=== PATIENT | female | born 2000 | race Caucasian/White ===

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

== ENCOUNTER 2022-01-23 16:34 | Emergency (ER) | payer MEDICAID, SELFPAY | END 2022-01-23 17:48 | disposition left against medical advice (07) | PROVIDERS: Emergency Provider Emergency Medicine | DX: R42 Dizziness and giddiness (principal) ==

== ENCOUNTER 2022-02-22 00:43 | Emergency (ER) | payer MEDICAID, SELFPAY ==
--- NOTE | ~2022-02-22 | CT_ITS ---
EXAMINATION: CT ABDOMEN AND PELVIS WITHOUT CONTRAST CLINICAL INFORMATION: Left flank pain. Question stone. COMPARISON: Ultrasound from 07/15/2021 TECHNIQUE: Multidetector volumetric imaging was performed from the superior aspect of the liver through the pubic symphysis. Sagittal and coronal reformatted images were obtained on the technologist's workstation. This CT examination was performed using dose optimization techniques as appropriate, variously including the following: *Automated exposure control *Adjustment of mA and/or kV according to patient size (this includes techniques or standardized protocols for targeted exams where dose is matched to indication/reason for exam; i.e. extremities or head) *Use of iterative reconstruction technique DLP: 620 mGy-cm FINDINGS: LUNG BASES: The visualized lung bases are unremarkable. LIVER, GALLBLADDER, AND BILIARY TREE: The liver is normal in size, shape, and attenuation. No focal hepatic lesion or biliary ductal dilatation is present. The gallbladder is unremarkable with no evidence of radiopaque gallstones, gallbladder wall thickening, or obvious pericholecystic inflammatory changes. PANCREAS: Unremarkable. SPLEEN: Unremarkable. ADRENAL GLANDS: Unremarkable. KIDNEYS AND URETERS: The kidneys are normal in size, shape, and attenuation. Mild left hydronephrosis. Associated perinephric fat stranding. 0.4 cm calculus at the left ureteropelvic junction, 14 cm from the posterior axillary line. The ureter is decompressed distal to this level. BLADDER: Unremarkable. GASTROINTESTINAL TRACT: The small and large bowel are unremarkable. The appendix is unremarkable. ABDOMINAL WALL: No significant hernia is appreciated. LYMPH NODES: Normal. VASCULAR: Unremarkable. PELVIC VISCERA: The uterus and adnexa are unremarkable. OSSEOUS STRUCTURES: Unremarkable. CT/CT abdomen pelvis wo IV con IMPRESSION: Mild left hydronephrosis with a 0.4 cm calculus at the ureteropelvic junction. Fleischner guidelines were followed.
[2022-02-22 00:45] VITALS: BP 132/70; BP 132/92; PULSE 100; PULSE 83; RESP 21; TEMP 36.8; O2SAT 100; O2SAT 99; BMI 31.1
--- NOTE | 2022-02-22 01:25 | ED_ITS ---
HPI - Abdominal Pain General Chief Complaint: Abdominal Pain Stated Complaint: woke up with back pain Time Seen by Provider: 02/22/22 00:53 History of Present Illness HPI narrative: patient with history of nonobstructive kidney stone comes here for acute onset of left flank pain started about an hour prior to arrival associated with nausea. Patient never had similar severe pain in the past Related Data Home Medications Medication Instructions Recorded Confirmed aspirin 81 mg tablet,delayed 162 mg PO DAILY 07/24/21 release chlorhexidine gluconate 0.12 % 15 ml PO BID 07/24/21 mouthwash pyridoxine (vitamin B6) 100 mg 100 mg PO DAILY 07/24/21 tablet Previous Rx's Medication Instructions Recorded ibuprofen 400 mg tablet 400 mg PO Q6H PRN pain #20 tabs 10/07/20 oxycodone-acetaminophen 5 mg-325 1 tab PO Q6H PRN pain #20 tabs 02/22/22 mg tablet (Percocet) tamsulosin 0.4 mg capsule (Flomax) 0.4 mg PO BEDTIME #7 caps 02/22/22 Allergies Allergy/AdvReac Type Severity Reaction Status Date / Time No Known Allergies Allergy Verified 02/22/22 00:49 [No Known Allergies*] Review of Systems Review of Systems Yes all other systems are reviewed and are negative PMFSH Past Medical History Medical History Patient denies significant medical history Renal calculi Surgical History No pertinent past surgical history Social History Social History Alcohol intake: never Advance Directives: No Advance Directives Information Provided: No Physical Exam ED Vital Signs: Vital Signs - 24 hr 02/22/22 00:45 Temperature 98.2 F Pulse Rate 100 Respiratory Rate 21 H Blood Pressure 132/70 Pulse Oximetry 100 Oxygen Delivery Method Room Air BMI result Body Mass Index 31.1 Appearance: Alert. Oriented X3. No acute distress. Eyes: no pallor or icterus ENT: Pharynx normal. Oral Mucosa moist Neck: Normal inspection. Neck supple. CVS: Normal heart rate and rhythm. Pulses normal. Respiratory: No respiratory distress. Equal air entry bilateral, Abdomen: Soft and nontender. Bowel sounds are present, no mass palpable, left CVA tenderness Skin: Skin warm and dry. Normal skin color. Normal skin turgor. Extremities: No lower extremity edema. No calf tenderness Neuro: Oriented X 3. MDM - Abdominal Pain MDM Narrative Medical decision making narrative: patient with 0.4 cm ureteropelvic obstructive stone with mild hydronephrosis feeling much better after IV fluids and pain medication advised to follow-up with urology Differential Diagnosis Differential diagnosis: Likely calculus of kidney Medical Records Attestation: I reviewed the patient's medical records. Lab Data Attestation: I reviewed the patient's lab results. Result diagrams: 02/22/22 01:48 02/22/22 01:48 Labs: Lab Results 02/22/22 02/22/22 Range/Units 01:48 01:48 WBC 11.4 H (4.8-10.8) X10*3/uL RBC 5.05 (4.20-5.50) X10*6/uL Hgb 13.3 (12.0-16.0) g/dl Hct 39.2 (37.0-47.0) % MCV 77.6 L (80.0-98.0) fL MCH 26.3 L (27.0-33.0) pg MCHC 33.9 (31.0-35.0) g/dl RDW 14.5 (11.0-16.0) % Plt Count 369 D (160-400) X10*3/uL MPV 8.8 L (9.4-12.3) fL Immature Gran % (Auto) 0.4 (0.0-0.4) % Neut % (Auto) 73.8 H (45-73) % Lymph % (Auto) 19.0 L (20-40) % [place] % (Auto) 5.6 (2-11) % Eos % (Auto) 0.8 (0-4) % Baso % (Auto) 0.4 (0-2) % Lymph # (Auto) 2.2 (1.2-4.9) X10*3/uL [place] # (Auto) 0.6 (0.1-1.2) X10*3/uL Eos # (Auto) 0.1 (0.0-0.4) X10*3/uL Baso # (Auto) 0.0 (0.0-0.2) X10*3/uL Abs Immat Gran (auto) 0.04 H (0.00-0.03) X10*3/uL Absolute Neuts (auto) 8.4 H (2.0-8.3) x10*3/uL Absolute Nucleated RBC 0.000 (0.0-0.012) X10*3/uL Nucleated RBC % (auto) 0.0 (0.0-0.2) /100WBC Sodium 140 (135-145) mmol/L Potassium 3.7 (3.3-5.1) mmol/L Chloride 103 (96-108) mmol/L Carbon Dioxide 24 (22-29) mmol/L Anion Gap 17 (12-20) BUN 15 D (9-16) mg/dL Creatinine 0.86 (0.5-1.4) mg/dL Estim Creat Clear Calc 101.2 Estimated GFR > 60 Random Glucose 122 H (60-115) mg/dL Calcium 9.9 D (8.4-10.2) mg/dL Discharge Plan Discharge Clinical Impression: Renal calculi Patient Disposition: Home, Self-Care Instructions: Kidney Stones (ED) Additional Instructions: drink plenty of fluids pain medication as advised do not do breast feed while taking pain medication follow-up with urology Prescriptions: New oxycodone-acetaminophen [Percocet] 5-325 mg tablet 1 tab PO Q6H PRN (Reason: pain) Qty: 20 0RF Rx Instructions: Partial Fill upon patient request. tamsulosin [Flomax] 0.4 mg capsule 0.4 mg PO BEDTIME Qty: 7 0RF No Action ibuprofen 400 mg tablet 400 mg PO Q6H PRN (Reason: pain) Qty: 20 0RF aspirin 81 mg tablet,delayed release (DR/EC) 162 mg PO DAILY chlorhexidine gluconate 0.12 % mouthwash 15 ml PO BID pyridoxine (vitamin B6) 100 mg tablet 100 mg PO DAILY Referrals: Jaciel Gardner MD [Physician] - 2 days Interventions: ED Discharge Assessment Last Done: 02/22/22 03:21 Discharge Date/Time: 02/22/22 03:41
[2022-02-22] MEDS: Morphine Sulfate 4 MG/ML CARTRIDGE IVPUSH (01:45)
[2022-02-22] MEDS: 0.9 % Sodium Chloride 1,000 ML 999 ML IV (01:50)
[2022-02-22] MEDS: ondansetron HCL 4 MG/2 ML VIAL IVPUSH (01:50)
[2022-02-22 01:52] LABS: MANUAL DIFF FLAG NO
[2022-02-22 01:54] LABS: Basophils Percent Auto 0.4 % (0-2); Eosinophils Absolute Auto 0.1 X10*3/uL (0.0-0.4); Eosinophils Percent Auto 0.8 % (0-4); Hematocrit 39.2 % (37.0-47.0); Hemoglobin 13.3 g/dl (12.0-16.0); Imm Gran Abs Auto 0.04 X10*3/uL (0.00-0.03); Imm Gran Pct Auto 0.4 % (0.0-0.4); Lymphocytes Absolute Auto 2.2 X10*3/uL (1.2-4.9); Mean Corpuscular HGB Conc 33.9 g/dl (31.0-35.0); Mean Corpuscular Hemoglobin 26.3 pg (27.0-33.0); Mean Corpuscular Volume 77.6 fL (80.0-98.0); Mean Platelet Volume 8.8 fL (9.4-12.3); Monocytes Absolute Auto 0.6 X10*3/uL (0.1-1.2); Monocytes Percent Auto 5.6 % (2-11); Neutrophils Absolute Auto 8.4 x10*3/uL (2.0-8.3); Neutrophils Percent Auto 73.8 % (45-73); Platelet Count 369 X10*3/uL (160-400); Red Blood Count 5.05 X10*6/uL (4.20-5.50); Red Cell Distribution Width 14.5 % (11.0-16.0); White Blood Count 11.4 X10*3/uL (4.8-10.8)
[2022-02-22] MEDS: Ketorolac Tromethamine 30 MG/ML VIAL IVPUSH (02:09)
[2022-02-22 02:33] LABS: Anion Gap 17 (12-20); Blood Urea Nitrogen 15 mg/dL (9-16); Calcium 9.9 mg/dL (8.4-10.2); Carbon Dioxide 24 mmol/L (22-29); Chloride 103 mmol/L (96-108); Creatinine Clr Calc Pharmacy 101.2; Estimated Glomerular Filt Rate > 60; Glucose Random 122 mg/dL (60-115); Potassium 3.7 mmol/L (3.3-5.1); Sodium 140 mmol/L (135-145)
[2022-02-22] MEDS: oxyCODONE HCl Immed Release 5 MG TABLET 10 MG PO (03:35)
[2022-02-22] MEDS: Tamsulosin HCL 0.4 MG CAPSULE PO (03:35)
== END 2022-02-22 03:41 | disposition home or self-care (01) ==
PROVIDERS: Emergency Provider Internal Medicine
DX: N20.0 Calculus of kidney (principal); Z79.899 Other long term (current) drug therapy
CPT/HCPCS: 36415; 74176; 80048; 85025; 96374; 96375; 99283; 99284; J1885; J2270; J2405

== ENCOUNTER 2022-03-31 07:08 | Emergency (ER) | payer MEDICAID, SELFPAY ==
--- NOTE | 2022-03-31 07:20 | PC.NURSE ---
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
== END 2022-03-31 07:24 | disposition left against medical advice (07) ==
PROVIDERS: Emergency Provider Emergency Medicine
DX: R10.9 Unspecified abdominal pain (principal)

== ENCOUNTER 2022-04-03 05:12 | Emergency (ER) | payer MEDICAID, SELFPAY ==
[2022-04-03 05:17] VITALS: BP 147/84; PULSE 86; RESP 16; TEMP 36.7; O2SAT 98; BMI 31.1
[2022-04-03 05:43] LABS: Basophils Percent Auto 0.3 % (0-2); Eosinophils Absolute Auto 0.2 X10*3/uL (0.0-0.4); Eosinophils Percent Auto 1.4 % (0-4); Hematocrit 38.9 % (37.0-47.0); Imm Gran Abs Auto 0.05 X10*3/uL (0.00-0.03); Imm Gran Pct Auto 0.4 % (0.0-0.4); Lymphocytes Absolute Auto 1.9 X10*3/uL (1.2-4.9); Lymphocytes Percent Auto 15.2 % (20-40); MANUAL DIFF FLAG NO; Mean Corpuscular HGB Conc 33.4 g/dl (31.0-35.0); Mean Corpuscular Hemoglobin 25.6 pg (27.0-33.0); Mean Corpuscular Volume 76.6 fL (80.0-98.0); Mean Platelet Volume 8.9 fL (9.4-12.3); Monocytes Percent Auto 8.3 % (2-11); Neutrophils Absolute Auto 9.4 x10*3/uL (2.0-8.3); Neutrophils Percent Auto 74.4 % (45-73); Platelet Count 297 X10*3/uL (160-400); Red Blood Count 5.08 X10*6/uL (4.20-5.50); Red Cell Distribution Width 13.2 % (11.0-16.0); White Blood Count 12.6 X10*3/uL (4.8-10.8)
[2022-04-03 05:46] LABS: Appearance Urine Clear; Color Urine Yellow; Glucose Urine UA Negative (Negative); Leukocyte Esterase Urine Small (1+) (Negative); Nitrite Urine Negative (Negative); PH 5.5 (5.0-9.0); UMIC TRIGGER UACC YES; Urine Blood Moderate (2+) (Negative); Urine Ketones Trace mg/dL (Negative); Urine Protein Trace mg/dL (Neg-Trace)
[2022-04-03 05:50] LABS: Urine Pregnancy NEGATIVE (NEGATIVE)
[2022-04-03 05:51] LABS: UPreg QC Valid YES
[2022-04-03 06:00] LABS: Alanine Aminotransferase 15 U/L (0-31); Albumin Level 4.4 g/dL (3.5-5.0); Alkaline Phosphatase 80 U/L (39-117); Anion Gap 12 (12-20); Aspartate Amino Transferase 16 U/L (5-31); Bilirubin Total 0.4 mg/dL (0.0-1.0); Blood Urea Nitrogen 12 mg/dL (9-16); Calcium 9.3 mg/dL (8.4-10.2); Carbon Dioxide 21 mmol/L (22-29); Chloride 109 mmol/L (96-108); Creatinine Clr Calc Pharmacy 114.4; Estimated Glomerular Filt Rate > 60; Glucose Random 107 mg/dL (60-115); Potassium 3.7 mmol/L (3.3-5.1); Sodium 138 mmol/L (135-145)
[2022-04-03 06:17] LABS: Bacteria Urine 1+ (None Seen); Hyaline Casts Urine 0-2 /LPF (0-2); RBC Urine >20 /HPF (0-2); UACC Culture Trigger YES
--- NOTE | 2022-04-03 11:23 | ED_ITS ---
HPI - Abdominal Pain General Chief Complaint: Abdominal Pain Stated Complaint: Kidney Stone? Time Seen by Provider: 04/03/22 09:39 Source: patient History of Present Illness HPI narrative: 21-year-old female with past medical history kidney stones, scheduled to have surgical procedure in 2 weeks, presents to the ED complaining of pain. Patient states the pain is Related Data Home Medications Medication Instructions Recorded Confirmed aspirin 81 mg tablet,delayed 162 mg PO DAILY 07/24/21 release chlorhexidine gluconate 0.12 % 15 ml PO BID 07/24/21 mouthwash pyridoxine (vitamin B6) 100 mg 100 mg PO DAILY 07/24/21 tablet Previous Rx's Medication Instructions Recorded ibuprofen 400 mg tablet 400 mg PO Q6H PRN pain #20 tabs 10/07/20 oxycodone-acetaminophen 5 mg-325 1 tab PO Q6H PRN pain #20 tabs 02/22/22 mg tablet (Percocet) tamsulosin 0.4 mg capsule (Flomax) 0.4 mg PO BEDTIME #7 caps 02/22/22 cephalexin 500 mg capsule 500 mg PO BID #7 caps 04/03/22 oxycodone-acetaminophen 5 mg-325 1 tab PO Q4H PRN pain (scale score 04/03/22 mg tablet (Percocet) 4-6) #14 tabs Allergies Allergy/AdvReac Type Severity Reaction Status Date / Time diphenhydramine AdvReac Intermediate Agitated Verified 03/31/22 07:11 [From Benadryl] PMFSH Past Medical History Medical History Patient denies significant medical history Renal calculi Surgical History No pertinent past surgical history Social History Social History Alcohol intake: never Advance Directives: No Advance Directives Information Provided: Yes Physical Exam ED Vital Signs: Vital Signs - 24 hr 04/03/22 05:17 Temperature 98.1 F Pulse Rate 86 Respiratory Rate 16 Blood Pressure 147/84 H Pulse Oximetry 98 Oxygen Delivery Method Room Air BMI result Body Mass Index 31.1 Medical Decision Making Medical Decision Making MDM Narrative: 21-year-old female with past medical history kidney stones presented today complaining of increased pain. Patient had a prescription filled on March 31 for oxycodone, 10 tablets. The patient also may have a urinary tract infection, with positive leukocyte esterase, however the nitrates are negative. The patient will be given a prescription for antibiotics, although she does not have symptoms of same, she does have a kidney stone. She will be instructed to follow-up with her urologist in the next 24 hours. Discussion of management with other physician/healthcare provider/other source (e.g., hospitalist, collection systems consultant, behavioral health): Discussion w/other physician/healthcare provider Attempted to consult with patient's primary urologist, but was unavailable Discharge Plan Discharge Clinical Impression: Renal calculi, UTI (urinary tract infection) Patient Disposition: Home, Self-Care Instructions: Kidney Stones (ED) Additional Instructions: call your urologist for follow up and any additional prescriptions for medication Prescriptions: New oxycodone-acetaminophen [Percocet] 5-325 mg tablet 1 tab PO Q4H PRN (Reason: pain (scale score 4-6)) Qty: 14 0RF Rx Instructions: Partial Fill upon patient request. cephalexin 500 mg capsule 500 mg PO BID Qty: 7 0RF No Action ibuprofen 400 mg tablet 400 mg PO Q6H PRN (Reason: pain) Qty: 20 0RF oxycodone-acetaminophen [Percocet] 5-325 mg tablet 1 tab PO Q6H PRN (Reason: pain) Qty: 20 0RF Rx Instructions: Partial Fill upon patient request. tamsulosin [Flomax] 0.4 mg capsule 0.4 mg PO BEDTIME Qty: 7 0RF aspirin 81 mg tablet,delayed release (DR/EC) 162 mg PO DAILY chlorhexidine gluconate 0.12 % mouthwash 15 ml PO BID pyridoxine (vitamin B6) 100 mg tablet 100 mg PO DAILY
== END 2022-04-03 12:13 | disposition home or self-care (01) ==
PROVIDERS: Emergency Provider Emergency Medicine
DX: N39.0 Urinary tract infection, site not specified (principal); N20.0 Calculus of kidney; Z79.899 Other long term (current) drug therapy
CPT/HCPCS: 36415; 80053; 81001; 81003; 81025; 85025; 87086; 99282; 99283

== ENCOUNTER 2022-09-30 11:07 | Emergency (ER) | payer MEDICAID, SELFPAY ==
[2022-09-30 11:18] VITALS: BP 153/80; PULSE 87; RESP 16; TEMP 36.2; O2SAT 98; BMI 32.9
--- NOTE | 2022-09-30 11:19 | ED_ITS ---
HPI - General Adult General Chief complaint: Urogenital-Female Stated complaint: UTI Time Seen by Provider: 09/30/22 12:24 Source: patient and RN notes reviewed Mode of arrival: ambulatory Limitations: no limitations History of Present Illness HPI narrative: This is a 22-year-old female, with no significant past medical history, presents the emergency department for evaluation of suprapubic pain with dysuria since yesterday. Patient reports that yesterday morning she woke up and felt a burning sensation while she was urinating. After urinating she had cramping in her lower abdomen for several hours. Throughout the course of the day yesterday she did not have any dysuria, hematuria. She did feel as though she has urinary urgency over the last 2 days, unsure she has had urinary frequency as she drinks lots of water. She reports that she woke up this morning and had burning sensation with urination as well as lower abdominal pain. Endorses nausea. Denies any abnormal vaginal discharge or bleeding. She reports she is not currently sexually active and has no concerns for sexually transmitted infections. She has had no fevers, chills, vomiting, shortness of breath, chest pain. No other complaints or concerns at this time. MD complaint: abdominal pain, dysuria Associated symptoms: nausea/vomiting Treatments prior to arrival: none Related Data Home Medications Medication Instructions Recorded Confirmed aspirin 81 mg tablet,delayed 162 mg PO DAILY 07/24/21 release chlorhexidine gluconate 0.12 % 15 ml PO BID 07/24/21 mouthwash pyridoxine (vitamin B6) 100 mg 100 mg PO DAILY 07/24/21 tablet Previous Rx's Medication Instructions Recorded ibuprofen 400 mg tablet 400 mg PO Q6H PRN pain #20 tabs 10/07/20 oxycodone-acetaminophen 5 mg-325 1 tab PO Q6H PRN pain #20 tabs 02/22/22 mg tablet (Percocet) tamsulosin 0.4 mg capsule (Flomax) 0.4 mg PO BEDTIME #7 caps 02/22/22 cephalexin 500 mg capsule 500 mg PO BID #7 caps 04/03/22 oxycodone-acetaminophen 5 mg-325 1 tab PO Q4H PRN pain (scale score 04/03/22 mg tablet (Percocet) 4-6) #14 tabs cefuroxime axetil 500 mg tablet 500 mg PO BID #10 tabs 09/30/22 phenazopyridine 200 mg tablet 200 mg PO TID PRN pain #9 tabs 09/30/22 (Pyridium) Allergies Allergy/AdvReac Type Severity Reaction Status Date / Time diphenhydramine AdvReac Intermediate Agitated Verified 03/31/22 07:11 [From Benadryl] Review of Systems Review of Systems: Constitutional: No Weight loss, No Fever, No Chills, No Night Sweats, No Fatig ue, No Malaise ENT/Mouth: No Hearing loss, No Ear Pain, No Nasal Congestion, No Sinus Pain, No Hoarseness, No sore throat, No Rhinorrhea, No Swallowing Difficulty Eyes: No Eye Pain, No Swelling, No Redness, No Foreign Body, No Discharge, No Vision Changes Cardiovascular: No Chest Pain, No SOB, No Dyspnea on Exertion, No Orthopnea, No Edema, No Palpitations Respiratory: No Cough, No Sputum, No Wheezing, No Smoke Exposure, No Dyspnea Gastrointestinal:+ Nausea, No Vomiting, No Diarrhea, No Constipation, No Abdominal pain, No Hematochezia, No Melena Genitourinary: No irregular bleeding, +Dysuria, No Urinary Frequency, No Hematuria, No Urinary Incontinence/retention, + Urgency, No Flank Pain, No Urinary Flow Changes, No Hesitancy Musculoskeletal: No joint pain, No Myalgias, No Joint Swelling Skin: No Skin Lesions, No rash Neuro: No Weakness, No Numbness, No Paresthesias, No Loss of Consciousness, No Dizziness, No Headache Psych: No Anxiety/Panic, No Depression, No SI/HI/AH/VH, No Social Issues, Heme/Lymph: No Bruising, No Bleeding,No Lymphadenopathy Endocrine: No Polyuria, No Polydipsia, No Temperature Intolerance Yes all other systems are reviewed and are negative Constitutional: Constitutional: Reports as per [facility] Past Medical History Medical History Patient denies significant medical history Renal calculi Surgical History No pertinent past surgical history Social History Social History Alcohol intake: never Advance Directives: No Advance Directives Information Provided: No Physical Exam ED Vital Signs: Vital Signs - 24 hr 09/30/22 11:18 09/30/22 12:00 Temperature 97.2 F 99.0 F Pulse Rate 87 68 Respiratory Rate 16 16 Blood Pressure 153/80 H 123/72 Pulse Oximetry 98 97 Oxygen Delivery Method Room Air Room Air BMI result Body Mass Index 32.9 Const General: cooperative, comfortable and no acute distress Orientation/consciousness: patient oriented x3 Limitations: no limitations HENMT Head: Yes normal to inspection, Yes normocephalic and Yes atraumatic Ears: hearing grossly normal bilaterally General nose exam: Normal external nose present Face and sinus: Yes normal facial exam Mouth: Normal oral and palatal mucosa present, oropharynx normal and moist mucous membranes Throat: Yes posterior oropharynx normal Eyes General: appearance normal, both eyes and all related structures Eyelids: Yes eyelids normal Conjunctivae: conjunctivae normal Sclerae: sclerae normal Pupils: Equal, round and reactive pupils present EOM: EOMs intact bilaterally Neck Neck: Yes normal visual inspection, Yes full ROM and Yes no lymphadenopathy Lymphatic: no lymphadenopathy noted Chest Chest palpation & inspection: normal inspection of the chest Resp Effort & Inspection: normal respiratory effort and able to speak in complete sentences Auscultation: clear to auscultation bilaterally, no crackles, no rales, no rhonchi and no wheezes Cardio Rate: regular rate Rhythm: regular rhythm Heart sounds: S1 normal heart sound present and S2 normal heart sound present GI Other: Mild suprapubic tenderness to palpation, no rebound or guarding. Normoactive bowel sounds present in all 4 quadrants. Inspection: Yes normal to inspection Other: No CVA tenderness Skin General skin exam: no rashes or lesions noted Trauma: no lacerations or abrasions Wounds: no wounds Neuro General: patient oriented x3 and moves all extremities Cranial nerves: Yes Equal, round and reactive pupils present Extrem General: Yes normal to inspection Right upper extremity: normal to inspection Left upper extremity: normal to inspection Right lower extremity: normal to inspection Left lower extremity: normal to inspection Course Course Course Narrative: RME: dysuria and lower abdominal discomfort. no flank pain, fever, chills, nu[place]a, vomitting, vaginal discharge, vaginal lesions, or trauma. patient states unprotected sex 3 days. Had Chlamydia before in the past. Reevaluation(s) Reevaluation #1: Upon examination, urine appears to be infected, chlamydia and gonorrhea testing still pending, advised patient that we will call her with any abnormal results. Will treat with a course of cefuroxime and pyridium. Per my discussion patient has no concerns for any sexually transmitted infections. Patient is afebrile, vital signs within normal limits, will treat as urinary tract infection advised to complete entire course, drink plenty of fluids. Patient understands and agrees with this plan. Time: 13:35 Medical Decision Making Medical Decision Making [facility] Narrative: 22-year-old female presenting to the emergency department for evaluation of intermittent dysuria and intermittent suprapubic pain since yesterday. On examination, patient is afebrile, all vital signs within normal, and has suprapubic tenderness to palpation. Patient has no CVA tenderness. Given presentation and exam findings, likely urinary tract infection, patient is nontoxic appearing and has been able to tolerate p.o. and has not had any fevers, will obtain urine sample. Plan: UA ordered Differential Diagnosis Differential Diagnoses: The differential diagnosis associated with the presentation includes Urinary tract infection, pyelonephritis-less likely, STI Admission/Observation Consideration of admission/observation: Escalation of care including admission/observation considered Lab Data [facility] Lab Attestation statement: I reviewed the patient's lab results. Labs: Lab Results 09/30/22 09/30/22 09/30/22 Range/Units 12:29 12:29 12:29 Urine Color Yellow Urine Appearance Clear Urine pH 6.0 (5.0-9.0) Ur Specific [place] <= 1.005 (1.005-1.025) Urine Protein Negative (Neg-Trace) mg/dL Urine Glucose (UA) Negative (Negative) mg/dL Urine Ketones Negative (Negative) mg/dL Urine Blood Small (1+) H (Negative) Urine Nitrite Negative (Negative) Ur Leukocyte Esterase Moderate (2+) H (Negative) Urine RBC 0-2 (0-2) /HPF Urine WBC 21-50 H (0-5) /HPF Ur Squamous Epith Cells 0-2 (0-2) /HPF Urine Bacteria Trace (None Seen) Hyaline Casts 0-2 (0-2) /LPF Urine Test NEGATIVE (NEGATIVE) Chlam trachomat DNA PCR NOT DETECTED (Not Detect.) N.gonorrhoeae DNA (PCR) NOT DETECTED (Not Detect.) Radiology Impression Discussion of test interpretation with radiology: I have reviewed the radiologist's reading. External Record Review External record reviewed: Inpatient record, Office record, Outpatient record, Prior outpatient labs, Prior outpatient radiology, Primary care record and Outside ED record Discharge Plan Discharge Clinical Impression: Urinary tract infection Patient Disposition: Home, Self-Care Instructions: Urinary Tract Infection in Women (ED) Additional Instructions: Your urine appears to be infected today. Please take prescribed antibiotics as directed, finish the entire course even if your feeling better. I am also prescribing pyridium which can help with the burning and lower abdominal cramping. This will likely cause your urine to turn bright orange. Drink plenty of fluids and get plenty of rest. To prevent this from happening, wiping front to back, peeing after intercourse and staying well hydrated will prevent this from happening. If any new or worsening symptoms occur, please return for re-evaluation. Prescriptions: New cefuroxime axetil 500 mg tablet 500 mg PO BID Qty: 10 0RF phenazopyridine [Pyridium] 200 mg tablet 200 mg PO TID PRN (Reason: pain) Qty: 9 0RF No Action ibuprofen 400 mg tablet 400 mg PO Q6H PRN (Reason: pain) Qty: 20 0RF oxycodone-acetaminophen [Percocet] 5-325 mg tablet 1 tab PO Q6H PRN (Reason: pain) Qty: 20 0RF Rx Instructions: Partial Fill upon patient request. tamsulosin [Flomax] 0.4 mg capsule 0.4 mg PO BEDTIME Qty: 7 0RF oxycodone-acetaminophen [Percocet] 5-325 mg tablet 1 tab PO Q4H PRN (Reason: pain (scale score 4-6)) Qty: 14 0RF Rx Instructions: Partial Fill upon patient request. cephalexin 500 mg capsule 500 mg PO BID Qty: 7 0RF aspirin 81 mg tablet,delayed release (DR/EC) 162 mg PO DAILY chlorhexidine gluconate 0.12 % mouthwash 15 ml PO BID pyridoxine (vitamin B6) 100 mg tablet 100 mg PO DAILY Stand Alone Forms: Work/School Release Interventions: ED Discharge Assessment Last Done: 09/30/22 14:15 Discharge Date/Time: 09/30/22 14:16
[2022-09-30 12:00] VITALS: BP 123/72; PULSE 68; RESP 16; TEMP 37.2; O2SAT 97
[2022-09-30 12:38] LABS: Appearance Urine Clear; Color Urine Yellow; Glucose Urine UA Negative (Negative); Leukocyte Esterase Urine Moderate (2+) (Negative); Nitrite Urine Negative (Negative); Specific Gravity - Urine <= 1.005 (1.005-1.025); UMIC TRIGGER UACC YES; Urine Blood Small (1+) (Negative); Urine Ketones Negative (Negative); Urine Protein Negative (Neg-Trace)
[2022-09-30 12:42] LABS: UPreg QC Valid YES; Urine Pregnancy NEGATIVE (NEGATIVE)
[2022-09-30 12:49] LABS: Bacteria Urine Trace (None Seen); Hyaline Casts Urine 0-2 /LPF (0-2); RBC Urine 0-2 /HPF (0-2); Squamous Epithelial Cell Urine 0-2 /HPF (0-2); UACC Culture Trigger YES; WBC Urine 21-50 /HPF (0-5)
[2022-09-30 14:07] LABS: CT PCR NOT DETECTED (Not Detect.); NG PCR NOT DETECTED (Not Detect.)
== END 2022-09-30 14:16 | disposition home or self-care (01) ==
PROVIDERS: Physician Assistant; Emergency Provider Internal Medicine
DX: N39.0 Urinary tract infection, site not specified (principal); R30.0 Dysuria; R10.30 Lower abdominal pain, unspecified; Z79.899 Other long term (current) drug therapy
CPT/HCPCS: 0353U; 81001; 81025; 87086; 99283

== ENCOUNTER 2023-01-22 18:00 | Outpatient (REF) | payer MEDICAID, SELFPAY ==
[2023-01-23 05:29] LABS: CT PCR NOT DETECTED (Not Detect.); NG PCR NOT DETECTED (Not Detect.)
[2023-01-23 11:00] LABS: BV Int Neg Control Negative (Negative); BV Int Pos Control Positive (Positive)
== END 2023-01-22 18:01 | disposition home or self-care (01) ==
LOC: HO.HHCLNP 18:00
PROVIDERS: Visit Provider Nurse Practitioner Family
DX: N76.0 Acute vaginitis (principal)
CPT/HCPCS: 0353U; 87480; 87510; 87660

== ENCOUNTER 2023-02-14 18:05 | Outpatient (REF) | payer MEDICAID, SELFPAY ==
[2023-02-14 18:14] LABS: Appearance Urine Turbid; Color Urine Yellow; Glucose Urine UA Negative (Negative); Leukocyte Esterase Urine Negative (Negative); Nitrite Urine Negative (Negative); PH 5.5 (5.0-9.0); Specific Gravity - Urine >= 1.030 (1.005-1.025); UMIC TRIGGER UACC YES; Urine Blood Large (3+) (Negative); Urine Ketones Trace mg/dL (Negative); Urine Protein Trace mg/dL (Neg-Trace)
[2023-02-14 18:16] LABS: Bacteria Urine 1+ (None Seen); Hyaline Casts Urine 0-2 /LPF (0-2); RBC Urine >20 /HPF (0-2); WBC Urine 0-5 /HPF (0-5)
[2023-02-15 11:13] LABS: BV Int Neg Control Negative (Negative); BV Int Pos Control Positive (Positive)
== END 2023-02-14 18:06 | disposition home or self-care (01) ==
LOC: HO.HHCLNP 18:05
PROVIDERS: Visit Provider Student in an Organized Health Care Education/Training Program
DX: R30.9 Painful micturition, unspecified (principal)
CPT/HCPCS: 81001; 87086; 87480; 87510; 87660

== ENCOUNTER 2023-07-05 10:38 | Outpatient (REF) | payer MEDICAID, SELFPAY ==
[2023-07-05 14:06] LABS: Alanine Aminotransferase 37 U/L (0-31); Albumin Level 4.5 g/dL (3.5-5.0); Alkaline Phosphatase 81 U/L (39-117); Anion Gap 14 (12-20); Aspartate Amino Transferase 30 U/L (5-31); Bilirubin Direct 0.2 mg/dL (0.0-0.5); Bilirubin Total 0.6 mg/dL (0.0-1.0); Blood Urea Nitrogen 14 mg/dL (9-16); Calcium 9.6 mg/dL (8.4-10.2); Carbon Dioxide 25 mmol/L (22-29); Chloride 103 mmol/L (96-108); Cholesterol 202 mg/dL (<200); Estimated Glomerular Filt Rate > 60; Glucose Random 95 mg/dL (60-115); HDL Cholesterol 42 mg/dL (>40); LDL Cholesterol Calculated 133 mg/dL (<100); Potassium 3.4 mmol/L (3.3-5.1); Sodium 139 mmol/L (135-145); Total Protein 7.7 g/dL (6.5-8.0); Triglycerides 139 mg/dL (<150)
== END 2023-07-05 10:39 | disposition home or self-care (01) ==
LOC: HO.HHCL 10:38
PROVIDERS: Visit Provider Student in an Organized Health Care Education/Training Program
DX: I16.0 Hypertensive urgency (principal)
CPT/HCPCS: 36415; 80048; 80061; 80076

== ENCOUNTER 2023-08-01 17:29 | Outpatient (REF) | payer MEDICAID, SELFPAY ==
[2023-08-03 19:48] LABS: C. trachomatis RNA TMA NOT DETECTED (NOT DETECTED); Candida glabrata RNA NOT DETECTED (NOT DETECTED); Candida species RNA DETECTED (NOT DETECTED); N. gonorrhoeae RNA TMA NOT DETECTED (NOT DETECTED); Trichomonas vaginalis RNA NOT DETECTED (NOT DETECTED)
== END 2023-08-01 17:30 | disposition home or self-care (01) ==
LOC: HO.HHCLNP 17:29
PROVIDERS: Visit Provider Internal Medicine
DX: R30.0 Dysuria (principal)
CPT/HCPCS: 36415; 81513; 87086; 87481; 87491; 87591; 87661

== ENCOUNTER 2023-10-05 07:02 | Emergency (ER) | payer MEDICAID, SELFPAY ==
--- NOTE | ~2023-10-05 | XR_ITS ---
EXAMINATION: XR CHEST CLINICAL INFORMATION: Chest pain COMPARISON: Chest radiograph from 10/07/2020 TECHNIQUE: 2 views of the chest were obtained. FINDINGS: No focal consolidation. No pneumothorax. Trachea is midline. Cardiac mediastinal silhouette is not enlarged. No large pleural effusion. Osseous structures are intact. Soft tissues are unremarkable. XR/XR chest 2V IMPRESSION: No acute cardiopulmonary process.
--- NOTE | 2023-10-05 07:12 | ECG_ITS ---
Test Reason : CHEST PAIN Blood Pressure : / mmHG Vent. Rate : 070 BPM Atrial Rate : 070 BPM P-R Int : 148 ms QRS Dur : 076 ms QT Int : 394 ms P-R-T Axes : -01 041 007 degrees QTc Int : 425 ms Normal sinus rhythm Normal ECG No previous ECGs available Referred By: Generic ED Physician Electronically Signed By:HARSHAD MARIE MD
[2023-10-05 07:30] VITALS: BP 137/89; PULSE 71; RESP 16; TEMP 36.4; O2SAT 96; BMI 39.0
--- NOTE | 2023-10-05 08:34 | ED_ITS ---
HPI - Chest Pain General Chief Complaint: Chest Pain Stated Complaint: chest pain sob Time Seen by Provider: 10/05/23 08:33 Source: patient and RN notes reviewed Mode of arrival: ambulatory Limitations: no limitations History of Present Illness ED Provider: Carito Davis PA-C HPI narrative: This is a 23-year-old female, with a history of hypertension (with lifestyle modifications - no longer on HCTZ), who presents emergency department with complaints of left-sided chest pain x 2 days. Patient reports that over the last 2 days she has had intermittent chest pressure which last for 15-20 seconds and resolves on its own. She states that the pain does radiate into her left shoulder. She also reports some heaviness that worsens with deep inspiration. She also endorses palpitations. She has history of palpitations ever since she had been to her child 2 years ago. States that since her symptoms have started she has had increased palpitations. She denies any fevers, chills, abdominal pain, nausea, vomiting or diarrhea. Denies any recent travel, surgeries, hospitalizations or surgeries. She does have the progesterone only IUD, was formally on combination OCPs several months ago. No known family medical cardiac history. No drug use. No recent illness. Denies any other complaints or concerns at this time. MD complaint: chest pain and chest heaviness Onset (ago): minute(s) Timing of current episode: episodic Prior episodes: Yes Onset: during rest Pain location: left chest Pain radiation: left shoulder Relieving factors: nothing Exacerbating factors: nothing Treatment prior to arrival: none Risk Factors Coronary artery disease risk factors: hypertension Thoracic aortic dissection risk factors: none Pulmonary embolism risk factors: oral contracepetive use Related Data Home Medications ?Medication ?Instructions ?Recorded ?Confirmed aspirin 81 mg tablet,delayed 162 mg PO DAILY 07/24/21 release chlorhexidine gluconate 0.12 % 15 ml PO BID 07/24/21 mouthwash pyridoxine (vitamin B6) 100 mg 100 mg PO DAILY 07/24/21 tablet Previous Rx's ?Medication ?Instructions ?Recorded ibuprofen 400 mg tablet 400 mg PO Q6H PRN pain #20 tabs 10/07/20 oxycodone-acetaminophen 5 mg-325 1 tab PO Q6H PRN pain #20 tabs 02/22/22 mg tablet (Percocet) tamsulosin 0.4 mg capsule (Flomax) 0.4 mg PO BEDTIME #7 caps 02/22/22 cephalexin 500 mg capsule 500 mg PO BID #7 caps 04/03/22 oxycodone-acetaminophen 5 mg-325 1 tab PO Q4H PRN pain (scale score 04/03/22 mg tablet (Percocet) 4-6) #14 tabs cefuroxime axetil 500 mg tablet 500 mg PO BID #10 tabs 09/30/22 phenazopyridine 200 mg tablet 200 mg PO TID PRN pain #9 tabs 09/30/22 (Pyridium) Allergies Allergy/AdvReac Type Severity Reaction Status Date / Time diphenhydramine AdvReac Intermediate Agitated Verified 10/05/23 07:31 [From Agustinl] Review of Systems 2 Review of Systems: Yes all other systems are reviewed and are negative Constitutional: Constitutional: Reports as per [facility] Past Medical History Attestation statement: The following information was validated with the patient. Medical History Renal calculi Patient denies significant medical history Surgical History No pertinent past surgical history Social History Social History Alcohol intake: never Smoked in Last 30 Days: No Use of substances other than those prescribed or required for medical reasons: No Advance Directives: No Advance Directives Information Provided: No Physical Exam 2 Vital Signs: Vital Signs: Last Vital Signs Temp 97.6 F 10/05/23 07:30 Pulse 77 10/05/23 08:50 Resp 18 10/05/23 08:50 BP 131/75 10/05/23 08:50 Pulse Ox 98 10/05/23 08:50 O2 Del Method Room Air 10/05/23 08:50 BMI result Body Mass Index 39.0 Const: General: cooperative, comfortable and no acute distress O rientation/consciousness: patient oriented x3 Limitations: no limitations HEENT: Head: Yes normal to inspection, Yes normocephalic and Yes atraumatic Ears: hearing grossly normal bilaterally General nose exam: Normal external nose present Face and sinus: Yes normal facial exam Mouth: Normal oral and palatal mucosa present, oropharynx normal and moist mucous membranes Throat: Yes posterior oropharynx normal Eyes: General: appearance normal, both eyes and all related structures E yelids: Yes eyelids normal Conjunctivae: conjunctivae normal Sclerae: s clerae normal Pupils: Equal, round and reactive pupils present EOM: EOMs intact bilaterally Neck: Neck: Yes normal visual inspection, Yes full ROM and Yes no lymphadenopathy Lymphatic: no lymphadenopathy noted Chest: Other: No palpable chest abnormalities, no tenderness to palpation along the left shoulder. Pain does not worsen with movement of the left shoulder. Chest palpation & inspection: normal inspection of the chest Resp: Effort & Inspection: normal respiratory effort and able to speak in complete sentences Auscultation: clear to auscultation bilaterally, no crackles, no rales, no rhonchi and no wheezes Cardio: Rate: regular rate Rhythm: regular rhythm Heart sounds: S1 normal heart sound present and S2 normal heart sound present GI: Inspection: Yes normal to inspection Skin: General skin exam: no rashes or lesions noted Trauma: no lacerations or abrasions Wounds: no wounds Neuro: General: patient oriented x3 and moves all extremities Cranial nerves: Yes Equal, round and reactive pupils present Extrem: General: Yes normal to inspection Right upper extremity: normal to inspection Left upper extremity: normal to inspection Right lower extremity: normal to inspection Left lower extremity: normal to inspection Course Reevaluation(s) Reevaluation #1: Chest x-ray unremarkable, EKG normal sinus rhythm with no ST elevation or depression. Labs reassuring, no elevated troponin, does not need repeat as patient's symptoms have been ongoing for the last 2 days. TSH within normal range. D-dimer is negative. It is unclear what is causing her to have the symptoms however workup today is reassuring. Advised to follow-up with her primary care physician and to return with any new or worsening symptoms. Patient heart score 1, stable for discharge with close follow-up. Patient understands and agrees with plan. Patient stable for discharge. Time: 10:48 Medical Decision Making Medical Decision Making MDM Narrative: This is a 23-year-old female who presents emergency department for evaluation of chest pain x2 days. On arrival, vital signs within normal limits. She is speaking in full sentences under no distress. Patient has reported intermittent chest pain that lasts for 15-20 seconds and resolves on its own. Patient reports that the pain typically comes at random and occasionally radiates into her left shoulder. She denies any fevers, chills, shortness breast abdominal pain, nausea, vomiting or diarrhea. She does report that she has had palpitations, she has a history of palpitations since giving to a child 2 years ago. She has not currently on oral contraceptive pills, she does report that she has an IUD. Differential diagnoses include ACS, pericarditis, pneumothorax-unlikely, PE-unlikely, bronchitis, pneumonia. Plan: Labs, EKG, chest x-ray Differential Diagnosis Differential Diagnoses: The differential diagnosis associated with the presentation includes See above Admission/Observation Consideration of admission/observation: Escalation of care including admission/observation considered Escalation of care including admission/observation considered however given workup today not warranted at this time. Lab Data MDM Lab Attestation statement: I reviewed the patient's lab results. No leukocytosis, stable H&H, chemistry nondiagnostic, TSH within normal range, troponin less than 2.7 10/05/23 09:35 10/05/23 09:35 Labs: Lab Results 10/05/23 Range/Units 09:35 WBC 6.5 (4.8-10.8) X10*3/uL RBC 4.76 (4.20-5.50) X10*6/uL Hgb 12.8 (12.0-16.0) g/dl Hct 37.6 (37.0-47.0) % MCV 79.0 L (80.0-98.0) fL MCH 26.9 L (27.0-33.0) pg MCHC 34.0 (31.0-35.0) g/dl RDW 12.8 (11.0-16.0) % Plt Count 271 (160-400) X10*3/uL MPV 9.2 L (9.4-12.3) fL Immature Gran % (Auto) 0.2 (0.0-0.4) % Neut % (Auto) 42.0 L (45-73) % Lymph % (Auto) 41.3 H (20-40) % [place] % (Auto) 10.7 (2-11) % Eos % (Auto) 5.2 H (0-4) % Baso % (Auto) 0.6 (0-2) % Lymph # (Auto) 2.7 (1.2-4.9) X10*3/uL [place] # (Auto) 0.7 (0.1-1.2) X10*3/uL Eos # (Auto) 0.3 (0.0-0.4) X10*3/uL Baso # (Auto) 0.0 (0.0-0.2) X10*3/uL Abs Immat Gran (auto) 0.01 (0.00-0.03) X10*3/uL Absolute Neuts (auto) 2.8 (2.0-8.3) x10*3/uL Absolute Nucleated RBC 0.000 (0.0-0.012) X10*3/uL Nucleated RBC % (auto) 0.0 (0.0-0.2) /100WBC PT 10.7 L (11.1-13.3) SEC INR 0.9 (0.9-1.1) APTT 27.2 (26.0-36.8) SEC D-Dimer High Sensitivty < 150 NG/ML Sodium 139 (135-145) mmol/L Potassium 4.1 D (3.3-5.1) mmol/L Chloride 108 (96-108) mmol/L Carbon Dioxide 21 L (22-29) mmol/L Anion Gap 14 (12-20) BUN 8 L (9-16) mg/dL Creatinine 0.63 (0.5-1.4) mg/dL Estim Creat Clear Calc 153.3 Estimated GFR > 60 Random Glucose 83 (60-115) mg/dL Calcium 9.7 (8.4-10.2) mg/dL Magnesium 1.8 (1.6-2.6) mg/dL Total Bilirubin 0.4 (0.0-1.0) mg/dL AST 23 (5-31) U/L ALT 27 (0-31) U/L Alkaline Phosphatase 65 (39-117) U/L Troponin I High Sens < 2.7 (<3.5-17.0) ng/L Total Protein 6.9 (6.5-8.0) g/dL Albumin 4.1 (3.5-5.0) g/dL TSH 1.52 (0.32-4.0) uIU/mL Independent Interpretation I performed an independent interpretation of an: EKG Interpretation: Normal sinus rhythm at a ventricular rate of 70 beats per minute, no ST elevation or depression. Radiology Impression Discussion of test interpretation with radiology: I have reviewed the radiologist's reading. Radiologist Impression: EXAMINATION: XR CHEST CLINICAL INFORMATION: Chest pain COMPARISON: Chest radiograph from 10/07/2020 TECHNIQUE: 2 views of the chest were obtained. FINDINGS: No focal consolidation. No pneumothorax. Trachea is midline. Cardiac mediastinal silhouette is not enlarged. No large pleural effusion. Osseous structures are intact. Soft tissues are unremarkable. XR/XR chest 2V IMPRESSION: No acute cardiopulmonary process. Dictated By: Junior Miller MD Scores Heart Score History: -0- slightly suspicious ECG: -0- normal Age: -0- < or = 45 Risk factory: -1- 1 or 2 risk factors Troponin: -0- < or = normal limit Score: 1 Risk: 1.7% Discharge Plan Discharge Clinical Impression: Chest pain Qualifiers: Chest pain type: unspecified Qualified Code(s): R07.9 - Chest pain, unspecified Patient Disposition: Home, Self-Care Instructions: Chest Pain (ED) Additional Instructions: You were seen in the emergency department due to chest pain. Your EKG, chest x-ray and labs are reassuring. Please stay well hydrated and get plenty of rest. Follow-up with your primary care physician, call on Saturday to make an appointment. If any new or worsening symptoms occur including but not limited to worsening pain, shortness of breath, dizziness or lightheadedness, please return for re- evaluation. Prescriptions: No Action ibuprofen 400 mg tablet 400 mg PO Q6H PRN (Reason: pain) Qty: 20 0RF oxycodone-acetaminophen [Percocet] 5-325 mg tablet 1 tab PO Q6H PRN (Reason: pain) Qty: 20 0RF Rx Instructions: Partial Fill upon patient request. tamsulosin [Flomax] 0.4 mg capsule 0.4 mg PO BEDTIME Qty: 7 0RF oxycodone-acetaminophen [Percocet] 5-325 mg tablet 1 tab PO Q4H PRN (Reason: pain (scale score 4-6)) Qty: 14 0RF Rx Instructions: Partial Fill upon patient request. cephalexin 500 mg capsule 500 mg PO BID Qty: 7 0RF cefuroxime axetil 500 mg tablet 500 mg PO BID Qty: 10 0RF phenazopyridine [Pyridium] 200 mg tablet 200 mg PO TID PRN (Reason: pain) Qty: 9 0RF aspirin 81 mg tablet,delayed release (DR/EC) 162 mg PO DAILY chlorhexidine gluconate 0.12 % mouthwash 15 ml PO BID pyridoxine (vitamin B6) 100 mg tablet 100 mg PO DAILY Stand Alone Forms: Work/School Release Print Language: Tajik
[2023-10-05 08:50] VITALS: BP 131/75; PULSE 77; RESP 18; O2SAT 98
--- NOTE | 2023-10-05 08:53 | PC.NURSE ---
Pt reports chest pain and discomfort since yesterday, substernal, 09/05. Along with palpitations intermittent for past few months. Diarrhea X1 week. Denies SOB, N/V, ABD pain, fever, cough. Alert and oriented, breathing even and unlabored, skin WNL. Pt NSR on bedside cooker loader.
[2023-10-05 09:39] LABS: MANUAL DIFF FLAG NO
[2023-10-05 09:41] LABS: Basophils Percent Auto 0.6 % (0-2); Eosinophils Absolute Auto 0.3 X10*3/uL (0.0-0.4); Eosinophils Percent Auto 5.2 % (0-4); Hematocrit 37.6 % (37.0-47.0); Hemoglobin 12.8 g/dl (12.0-16.0); Imm Gran Abs Auto 0.01 X10*3/uL (0.00-0.03); Imm Gran Pct Auto 0.2 % (0.0-0.4); Lymphocytes Absolute Auto 2.7 X10*3/uL (1.2-4.9); Lymphocytes Percent Auto 41.3 % (20-40); Mean Corpuscular Hemoglobin 26.9 pg (27.0-33.0); Mean Platelet Volume 9.2 fL (9.4-12.3); Monocytes Absolute Auto 0.7 X10*3/uL (0.1-1.2); Monocytes Percent Auto 10.7 % (2-11); Neutrophils Absolute Auto 2.8 x10*3/uL (2.0-8.3); Platelet Count 271 X10*3/uL (160-400); Red Blood Count 4.76 X10*6/uL (4.20-5.50); Red Cell Distribution Width 12.8 % (11.0-16.0); White Blood Count 6.5 X10*3/uL (4.8-10.8)
[2023-10-05 09:48] LABS: INTERNATIONAL NORM RATIO 0.9 (0.9-1.1); Prothrombin Time 10.7 SEC (11.1-13.3)
[2023-10-05 09:51] LABS: Partial Thromboplastin Time 27.2 SEC (26.0-36.8)
[2023-10-05 09:54] LABS: D Dimer High Sensitivity < 150 NG/ML
[2023-10-05 09:59] LABS: Alanine Aminotransferase 27 U/L (0-31); Albumin Level 4.1 g/dL (3.5-5.0); Alkaline Phosphatase 65 U/L (39-117); Anion Gap 14 (12-20); Aspartate Amino Transferase 23 U/L (5-31); Bilirubin Total 0.4 mg/dL (0.0-1.0); Blood Urea Nitrogen 8 mg/dL (9-16); Calcium 9.7 mg/dL (8.4-10.2); Carbon Dioxide 21 mmol/L (22-29); Chloride 108 mmol/L (96-108); Creatinine Clr Calc Pharmacy 153.3; Estimated Glomerular Filt Rate > 60; Glucose Random 83 mg/dL (60-115); Magnesium 1.8 mg/dL (1.6-2.6); Potassium 4.1 mmol/L (3.3-5.1); Sodium 139 mmol/L (135-145); Total Protein 6.9 g/dL (6.5-8.0)
[2023-10-05 10:06] LABS: Troponin-I High Sensitivity < 2.7 ng/L (<3.5-17.0)
[2023-10-05 10:19] LABS: TSH reflex Free T4 1.52 uIU/mL (0.32-4.0)
[2023-10-05 10:51] VITALS: PULSE 69; RESP 18; TEMP 36.2; O2SAT 98
[2023-10-05 11:08] VITALS: BP 133/68; PULSE 69; RESP 18; TEMP 36.2; O2SAT 98
== END 2023-10-05 11:09 | disposition home or self-care (01) ==
PROVIDERS: Physician Assistant Medical; Emergency Provider Emergency Medicine
DX: R07.9 Chest pain, unspecified (principal); R06.02 Shortness of breath
CPT/HCPCS: 36415; 71046; 80053; 83735; 84443; 84484; 85025; 85379; 85610; 85730; 93005; 99283; 99285

== ENCOUNTER → 2023-10-05 07:12 | Outpatient (BNV) | payer MEDICAID, SELFPAY | PROVIDERS: Emergency Provider Emergency Medicine; Visit Provider Internal Medicine Cardiovascular Disease | DX: R07.9 Chest pain, unspecified (principal) | CPT/HCPCS: 93010 ==

== ENCOUNTER 2023-10-25 13:34 | Outpatient (REF) | payer MEDICAID, SELFPAY ==
[2023-10-25 17:48] LABS: CT PCR NOT DETECTED (Not Detect.); NG PCR NOT DETECTED (Not Detect.)
== END 2023-10-25 13:35 | disposition home or self-care (01) ==
LOC: HO.HHCLNP 13:34
PROVIDERS: Visit Provider Registered Nurse
DX: R39.9 Unspecified symptoms and signs involving the genitourinary system (principal)
CPT/HCPCS: 87086; 87491; 87591

== ENCOUNTER 2023-10-30 10:17 | Emergency (ER) | payer MEDICAID, SELFPAY ==
[2023-10-30 10:20] VITALS: BP 119/64; PULSE 73; RESP 16; TEMP 36.1; O2SAT 97; BMI 38.4
[2023-10-30 10:42] LABS: MANUAL DIFF FLAG NO
[2023-10-30 10:44] LABS: Basophils Percent Auto 0.7 % (0-2); Eosinophils Absolute Auto 0.4 X10*3/uL (0.0-0.4); Eosinophils Percent Auto 6.8 % (0-4); Hematocrit 43.8 % (37.0-47.0); Hemoglobin 14.6 g/dl (12.0-16.0); Imm Gran Abs Auto 0.01 X10*3/uL (0.00-0.03); Imm Gran Pct Auto 0.2 % (0.0-0.4); Lymphocytes Absolute Auto 2.5 X10*3/uL (1.2-4.9); Mean Corpuscular HGB Conc 33.3 g/dl (31.0-35.0); Mean Corpuscular Hemoglobin 26.8 pg (27.0-33.0); Mean Corpuscular Volume 80.4 fL (80.0-98.0); Mean Platelet Volume 9.2 fL (9.4-12.3); Monocytes Absolute Auto 0.5 X10*3/uL (0.1-1.2); Neutrophils Absolute Auto 2.3 x10*3/uL (2.0-8.3); Neutrophils Percent Auto 40.3 % (45-73); Platelet Count 332 X10*3/uL (160-400); Red Blood Count 5.45 X10*6/uL (4.20-5.50); Red Cell Distribution Width 12.6 % (11.0-16.0); White Blood Count 5.7 X10*3/uL (4.8-10.8)
--- OUTSIDE RECORDS SUMMARY | 2023-10-30 10:44 | XMS_ITS | Continuity of Care Document ---
Author Organization [facility] ter Address [address] [place] [id number]- Care Team Providers Care Barge Master Name Role Phone Lesia Bliss DO Primary Care Physician Encounter [facility] [place] Date(s): 12/11/21 - 01/14/[address] [address]- Attending Physician: Tomy López MD Referring Physician: Tomy López MD Allergies, Adverse Reactions, Alerts No Known Allergies Medications acetaminophen 325 mg oral tablet 650 mg, By Mouth, Every 4 hours, (1-3), may give 325mg per patient preference and re-dose with 325mg within 4 hours, if needed. Patient should only receive a total of 650mg of Acetaminophen every 4 hours., Refills 0, Maintenance, 12/16/21 8:43:00 ED... Start Date: 12/16/21 Status: Ordered docusate sodium 100 mg oral capsule 100 mg, 1, capsule, By Mouth, 2 times a day, # 60 capsule, Refills 0, Tot. Refills 0, Maintenance, 12/16/21 8:43:00 EDT, Route to Pharmacy Electronically, [facility]/pharmacy #[id number], Partial fill upon patient request if the prescription is for a schedule II o... Start Date: 12/16/21 Status: Ordered ibuprofen 800 mg oral tablet 800 mg, 1, tablet, By Mouth, Every 8 hours, (4-6), may give 400mg per patient preference and re-dose with 400mg within 8 hours, if needed. Patient should only receive a total of 800mg of Ibuprofen every 8 hours., Refills 0, Maintenance, 12/16/21 8:4... Start Date: 12/16/21 Status: Ordered NIFEdipine 30 mg oral tablet, extended release 30 mg, 1, tablet, By Mouth, Daily, # 90 tablet, Refills 0, Tot. Refills 0, Maintenance, 12/17/21 23:15:00 EDT, Route to Pharmacy Electronically, [facility]/pharmacy #[id number], Partial fill upon patient request if the prescription is for a schedule II opioid drug... Start Date: 12/17/21 Status: Ordered nortriptyline 10 mg oral capsule See Instructions, take one tablet nightly for 1 week then increase to 2 tablets nightly., # 49 tablet, Refills 0, Tot. Refills 0, Maintenance, 01/04/22 17:15:00 EDT, Instructions Replace Required Details, Route to Pharmacy Electronically, [facility]... Start Date: 01/04/22 Status: Ordered nortriptyline 25 mg oral capsule 25 mg, 1, capsule, By Mouth, Daily at bedtime, rx to be filled after iniital titration, # 30 capsule, Refills 3, Tot. Refills 3, Maintenance, 02/01/22 17:16:00 EDT, Route to Pharmacy Electronically, [facility]/pharmacy #[id number], Partial fill upon patient reques... Start Date: 02/01/22 Status: Ordered Pepcid 20 mg oral tablet 1 tablet = 20 mg, By Mouth, Daily at bedtime, # 30 tablet, 2 Refills, Maintenance, 11/18/21 23:58:00 EDT, Tablet, [facility]/pharmacy #[id number], Partial fill upon patient request if the prescription is for a schedule II opioid drug., 158, cm, 11/18/21 22:42:00 E... Start Date: 11/18/21 Stop Date: 02/16/22 Status: Ordered 1 By Mouth, Daily, 0 Refills, Maintenance, 07/11/21 17:51:00 EDT, Partial fill upon patient request if the prescription is for a schedule II opioid drug. Start Date: 07/11/21 Status: Ordered SUMAtriptan 100 mg oral tablet 1 tablet = 100 mg, By Mouth, Daily, PRN for migraine headache, may repeat dose after 2 hours up to a maximum of 2, # 9 tablet, 0 Refills, Acute 01/04/23 0:00:00 EDT, 01/04/22 17:14:00 EDT, Tablet, [id number], Partial fill upon patient request... Start Date: 01/04/22 Stop Date: 01/04/23 Status: Ordered Social History Social History Type Response Smoking Status Never (less than 100 in lifetime) entered on: 12/17/21 Sex Care Team Personnel Name: Lesia Bliss DO Address: [address] [place] [address]
--- OUTSIDE RECORDS SUMMARY | 2023-10-30 10:44 | XMS_ITS | Continuity of Care Document ---
Author Organization [facility] ter Address [address] [place] [id number]- Care Team Providers Care Medical Office Specialist Name Role Phone Lesia Bliss DO Primary Care Physician Encounter [facility] [place] Date(s): 11/18/21 - 11/19/[address] [address]- Discharge Disposition: A-D/C Home Attending Physician: Tomy López MD Admitting Physician: Tomy López MD Referring Physician: Tomy López MD Allergies, Adverse Reactions, Alerts No Known Allergies Medications Freestyle Lite Lancets See Instructions, # 1 pack/packet, Refills 3, Tot. Refills 3, Maintenance, To test blood sugar 4 x day. 1 packet =100 lancets, 08/03/21 13:41:00 EDT, Compound, 85, kg, 07/11/21 17:36:00 EDT, Dry Weight Start Date: 08/03/21 Status: Ordered Freestyle Lite Monitor See Instructions, # 1 kit, Maintenance, To test BS 4 x day., 08/03/21 13:41:00 EDT, Compound, 85, kg, 07/11/21 17:36:00 EDT, Dry Weight Start Date: 08/03/21 Status: Ordered Freestyle Lite Test Strips See Instructions, # 1 pack/packet, Refills 3, Tot. Refills 3, Maintenance, To test blood sugar 4 x day. 1 Bottle= 100 test strips, 08/03/21 13:41:00 EDT, Compound, 85, kg, 07/11/21 17:36:00 EDT, Dry Weight Start Date: 08/03/21 Status: Ordered Miconazole 7 vaginal cream with applicator 1 application, Vaginally, Daily at bedtime, for 7 days, # 45 Gm, 0 Refills, Acute 11/25/21 23:57:00EDT, 11/18/21 23:57:00 EDT, Cream, [facility]/pharmacy #[id number], Partial fill upon patient request if the prescription is for a schedule II opioid drug., 1 appli... Start Date: 11/18/21 Stop Date: 11/25/21 Status: Ordered Pepcid 20 mg oral tablet 1 tablet = 20 mg, By Mouth, Daily at bedtime, # 30 tablet, 2 Refills, Maintenance, 11/18/21 23:58:00 EDT, Tablet, [facility]/pharmacy #[id number], Partial fill upon patient request if the prescription is for a schedule II opioid drug., 158, cm, 11/18/21 22:42:00 E... Start Date: 11/18/21 Stop Date: 02/16/22 Status: Ordered 1 By Mouth, Daily, 0 Refills, Maintenance, 07/11/21 17:51:00 EDT, Partial fill upon patient request if the prescription is for a schedule II opioid drug. Start Date: 07/11/21 Status: Ordered Problem List Condition Effective Dates Status Health Status Inform ant Candidal vaginitis(Confirmed) Active Flank pain(Confirmed) Active Heartburn during (Confirmed) Active Vital Signs Most recent to oldest [Reference Range]: 1 2 Height 158 cm (11/18/21 10:42 PM) 158 cm (11/18/21 10:41 PM) Weight 83.9 kg (11/18/21 10:41 PM) Oxygen Saturation [94-100 %] 99 % (11/18/21 10:56 PM) Body Mass Index [18.5-24.99] 33.61 *>HHI* (11/18/21 10:41 PM) Blood Pressure [90-138/55-84 mm Hg] 133/ 89mm Hg (11/18/21 10:56 PM) Respiratory Rate [16-30 br/min] 18 br/mi n (11/18/21 10:56 PM) Temperature [96.8-100.4 DegF] 97.8 DegF (11/18/21 10:41 PM) Blood pressure sites Arm, left (11/18/21 10:56 PM) Temperature Route Oral (11/18/21 10:41 PM) Dry Weight 83.9 kg (11/18/21 10:41 PM) Weight Obtained Via Standing scale (11/18/21 10:41 PM) Dry Weight Obtained Via Standing scale (11/18/21 10:41 PM)
--- OUTSIDE RECORDS SUMMARY | 2023-10-30 10:44 | XMS_ITS | Continuity of Care Document ---
Author Organization [facility] ter Address [address] [place] [id number]- Care Team Providers Care Copy Center Specialist Name Role Phone Ruthy CARRANZALesia Primary Care Physician [place] [facility] [place] - 03/27/[address] [address]- Attending Physician: Jose Luis Carvalho MD Admitting Physician: Jose Luis Carvalho MD Referring Physician: Jose Luis Carvalho MD Allergies, Adverse Reactions, Alerts No Known [...] 12/16/21 8:43:00 EDT, Route to Pharmacy Electronically, [facility]/pharmacy #[id number], Partial fill upon patient request if the [...] 12/16/21 8:4... Start Date: 12/16/21 Status: Ordered meclizine 12.5 mg oral tablet 1 tablet = 12.5 mg, By Mouth, 3 times a day, PRN for dizziness, # 30 tablet, 0 Refills, Maintenance, 01/24/22 0:36:00 EDT, Tablet, [id number], Partial fill upon patient request if the prescription is for a schedule II opioid drug., 158, cm, 09... Start Date: 01/24/22 Status: Ordered NIFEdipine 30 mg oral tablet, extended release 30 mg, 1, tablet, By Mouth, Daily, # 90 tablet, Refills 0, Tot. Refills 0, Maintenance, 12/17/21 23:15:00 EDT, Route to Pharmacy Electronically, [id number], Partial fill upon patient request if the [...] 02/01/22 17:16:00 EDT, Route to Pharmacy Electronically, [id number], Partial fill upon patient reques... Start Date: 02/01/22 Status: Ordered Pepcid 20 mg oral tablet 1 tablet = 20 mg, By Mouth, Daily at bedtime, # 30 tablet, 2 Refills, Maintenance, 11/18/21 23:58:00 EDT, Tablet, [id number], Partial fill upon patient request if [...] 01/04/23 0:00:00 EDT, 01/04/22 17:14:00 EDT, Tablet, [facility]/pharmacy #[id number], Partial fill upon patient request... Start Date: 01/04/22 Stop Date: 01/04/23 Status: Ordered Social History Social History Type Response Smoking Status Never (less than 100 in lifetime) entered on: 12/17/21 Sex Patient Care team information Care Team Personnel Name: Lesia Bliss DO Position: S Outreach Member Role: PCP Address: Address: [address] [place] [id number]- Care Team Related Persons Name: YG VALDEZ Address: [employer] Address: [address] [place] [address] [place] Name: FAVIO AHMUADA Address: home [address] [place] [address]
--- OUTSIDE RECORDS SUMMARY | 2023-10-30 10:44 | XMS_ITS | Continuity of Care Document ---
Author Organization [facility] Address [address] [place] [id number]- Care Team Providers Care Boom Operator Name Role Phone Lesia Bliss DO Primary Care Physician Encounter [facility] [place] Date(s): 11/27/21 - 12/27/21 [facility] [address] [place] [id number]- Allergies, Adverse Reactions, Alerts No Known Allergies [...] 12/16/21 8:43:00 EDT, Route to Pharmacy Electronically, [facility]/pharmacy #[id number], Partial fill upon patient request if the [...] 12/17/21 23:15:00 EDT, Route to Pharmacy Electronically, [facility]/pharmacy #[id number], Partial fill upon patient request if the prescription is for a schedule II opioid drug... Start Date: 12/17/21 Status: Ordered oxyCODONE 5 mg oral tablet 5 mg, 1, tablet, By Mouth, Every 4 hours, PRN, (7-10), # 12 tablet, Refills 0, Tot. Refills 0, Acute 12/30/21 8:44:00 EDT, Pain , Severe, 12/16/21 8:43:00 EDT, Route to Pharmacy Electronically, [id number], Partial fill upon patient request if... Start Date: 12/16/21 Stop Date: 12/30/21 Status: Ordered Pepcid 20 mg oral tablet 1 tablet = 20 mg, By Mouth, Daily at bedtime, # 30 tablet, 2 Refills, Maintenance, 11/18/21 23:58:00 EDT, Tablet, [facility]/pharmacy #[id number], Partial fill upon patient request if the prescription is for a schedule II opioid drug., 158, cm, 11/18/21 22:42:00 E... Start Date: 11/18/21 Stop Date: 02/16/22 Status: Ordered 1 By Mouth, Daily, 0 Refills, Maintenance, 07/11/21 17:51:00 EDT, Partial fill upon patient request if the prescription is for a schedule II opioid drug. Start Date: 07/11/21 Status: Ordered Social History Social History Type Response Smoking Status Never (less than 100 in lifetime) entered on: 12/17/21 Sex Care Team Personnel Name: Lesia Bliss DO Address: [address] [place] [id number]
--- OUTSIDE RECORDS SUMMARY | 2023-10-30 10:44 | XMS_ITS | Continuity of Care Document ---
Author Organization [facility] ter Address [address] [place] [address]- Care Team Providers Care Hat Block Bench Hand Name Role Phone Lesia Bliss DO Primary Care Physician [place] [facility] [place] - 01/05/[address] [address]- Encounter Diagnosis Procedure and treatment not carried out for other reasons(Final) - Discharge Disposition: A-D/C Walkout Attending Physician: Tomy López MD Admitting Physician: Tomy López MD Allergies, Adverse Reactions, [...] 12/16/21 8:43:00 EDT, Route to Pharmacy Electronically, [facility]/pharmacy #[id number], Partial fill upon patient request if the [...] 23:15:00 EDT, Route to Pharmacy Electronically, [id number], Partial fill upon patient request if the [...] 0:00:00 EDT, 01/04/22 17:14:00 EDT, Tablet, [id number], Partial fill upon patient request... Start Date: 01/04/22 Stop Date: 01/04/23 Status: Ordered Social History Social History Type Response Smoking Status Never (less than 100 in lifetime) entered on: 12/17/21 Sex Care Team Personnel Name: Lesia Bliss DO Address: [address] [place] [id number]
--- OUTSIDE RECORDS SUMMARY | 2023-10-30 10:44 | XMS_ITS | Continuity of Care Document ---
Author Organization [facility] Address [address] [place], [address] Floor, [address] [place] [address]- Care Team Providers Care Welding Machine Operator/Tender Name Role Phone DalialuisLesia hoffmann DO Primary Care Physician Encounter [facility] [place] Date(s): 11/09/22 - 12/09/[address] [facility] [address], [address], [address] [place] [address]- Allergies, Adverse Reactions, Alerts No Known Allergies [...] 12/16/21 8:43:00 EDT, Route to Pharmacy Electronically, [facility]/pharmacy #[id number], Partial fill upon patient request if the prescription is for a schedule II o... Start Date: 12/16/21 Status: Ordered meclizine 12.5 mg oral tablet 1 tablet = 12.5 mg, By Mouth, 3 times a day, PRN for dizziness, # 30 tablet, 0 Refills, Maintenance, 01/24/22 0:36:00 EDT, Tablet, [facility]/pharmacy #[id number], Partial fill upon patient request if the prescription is for a schedule II opioid drug., 158, cm, 09... Start Date: 01/24/22 Status: Ordered naproxen 500 mg oral tablet 1 tablet = 500 mg, By Mouth, Daily, PRN Headache, with food, # 20 tablet, 1 Refills, Acute :00:00 EDT, 10/03/22 11:27:00 EDT, Tablet, [id number], Partial fill upon patient request if the prescription is for a schedule II opioid drug.... Start Date: 10/03/22 Stop Date: 10/04/23 Status: Ordered NIFEdipine 30 mg oral tablet, extended release 30 mg, 1, tablet, By Mouth, Daily, # 90 tablet, Refills 0, Tot. Refills 0, Maintenance, 12/17/21 23:15:00 EDT, Route to Pharmacy Electronically, [id number], Partial fill upon patient request if the prescription is for a schedule II opioid drug... Start Date: 12/17/21 Status: Ordered nortriptyline 25 mg oral capsule 25 mg, 1, capsule, By Mouth, Daily at bedtime, # 30 capsule, Refills 6, Tot. Refills 6, Maintenance, 11/05/22 12:36:00 EDT, Route to Pharmacy Electronically, [id number], Partial fill upon patient request if the prescription is for a schedule I... Start Date: 11/05/22 Status: Ordered Oxycodone = 5 mg, By Mouth, Every 4 hours, PRN Pain , Moderate, 0 Refills, Maintenance, 04/16/22 9:06:00 EST,Partial fill upon patient request if the prescription is for a schedule II opioid drug. Start Date: 04/16/22 Status: Ordered Pepcid 20 mg oral tablet 1 tablet = 20 mg, By Mouth, Daily at bedtime, # 30 tablet, 2 Refills, Maintenance, 11/18/21 23:58:00 EDT, Tablet, [id number], Partial fill upon patient request if the prescription is for a schedule II opioid drug., 158, cm, 11/18/21 22:42:00 E... Start Date: 11/18/21 Stop Date: 02/16/22 Status: Ordered rizatriptan 10 mg oral tablet 1 tablet = 10 mg, By Mouth, Daily, PRN for migraine headache, Take at headache onset, take initial dose with naproxen tablet, may repeat dose of rizatriptan in 2 hours if headache is not completely relieved., # 9 tablet, 5 Refills, Soft Stop, 10/03/22... Start Date: 10/03/22 Status: Ordered tamsulosin 0.4 mg oral capsule 0.4 mg, 1, capsule, By Mouth, Daily at bedtime, # 30 capsule, Refills 0, Maintenance, 04/16/22 9:07:00 EST, Partial fill upon patient request if the prescription is for a schedule II opioid drug. Start Date: 04/16/22 Status: Ordered Problem List Condition Confirmation Course Effective Dates Status Health St atus Informant Obese class II Confirmed Active Social History Social History Type Response Smoking Status Never (less than 100 in lifetime) entered on: 12/17/21 Sex Patient Care team information Care Team Personnel Name: Lesia Bliss DO Position: [facility] Outreach Member Role: PCP Address: Address: [address] [place] [address]- Care Team Related Persons Name: YG VALDEZ Address: AMER[place] Address: home [address] [place] [id number] [place] Name: FAVIO AHUMADA Address: home [address] [place] [id number]
--- OUTSIDE RECORDS SUMMARY | 2023-10-30 10:44 | XMS_ITS | Continuity of Care Document ---
Author Organization [facility] Address [address] [place] [address]- Care Team Providers Care Patient Support Representative Name Role Phone Hillarywil Lesia CARRANZA Primary Care Physician [place] [facility] [place] 09/28/21 - 10/28/21 [facility] [address] [place] [id number] Allergies, Adverse Reactions, Alerts No Known Allergies [...] Dry Weight Start Date: 08/03/21 Status: Ordered 1 By Mouth, Daily, 0 Refills, Maintenance, 07/11/21 17:51:00 EDT, Partial fill upon patient request if the prescription is for a schedule II opioid drug. Start Date: 07/11/21 Status: Ordered Problem List Condition Effective Dates Status Health Status Inform ant Flank pain(Confirmed) Active
--- OUTSIDE RECORDS SUMMARY | 2023-10-30 10:44 | XMS_ITS | Continuity of Care Document ---
Author Organization [facility] Address [address] [place] [address]- Care Team Providers Care Position Description Manager Name Role Phone DalialuisLesia hoffmann DO Primary Care Physician Encounter [facility] [place] Date(s): 09/12/21 - 10/12/21 [facility] [address] [place] [phone] Attending Physician: Admtr, Ar8 Admitting Physician: Admtr, Ar8 Referring Physician: Admtr, Ar8 Allergies, Adverse Reactions, Alerts No Known Allergies [...]
--- OUTSIDE RECORDS SUMMARY | 2023-10-30 10:44 | XMS_ITS | Continuity of Care Document ---
Author Organization [facility] Address [address] [place] [address]- Care Team Providers Care Measurement Specialist Name Role Phone Ruthy CARRANZA Lesia Primary Care Physician [place] [facility] [place](s): 08/16/21 - 10/12/21 [facility] [address] [place] [address]- Attending Physician: Tanvir Thrasher MD Admitting Physician: Price GARAY, Tanvir Referring Physician: Yajaira BURKS, Berenice Morales Allergies, Adverse Reactions, Alerts No Known Allergies [...]
--- OUTSIDE RECORDS SUMMARY | 2023-10-30 10:44 | XMS_ITS | Continuity of Care Document ---
Demographics Address [address] [place] [place] [address] Mobile Email Address Preferred Language Greek Marital Status Single Rastafarian Affiliation Unknown Affiliatio n Race White Ethnic Group Not or Lati no Author Organization [facility] Address [address], [address], [address] [place] [address]- Care Team Providers Care Laser Beam Trim Operator Name Role Phone DalialuisLesia hoffmann DO Primary Care Physician En[place] [facility] [place] Date(s): 07/22/23 - 08/21/23 [facility] [address], [address] [place] [address]- Attending Physician: Cheri Wall Admitting Physician: Cheri Wall Referring Physician: Cheri Wall Referring Physician: Luanne Sauer Allergies, Adverse Reactions, Alerts No Known Allergies [...] 12/16/21 8:43:00 EDT, Route to Pharmacy Electronically, [facility]/pharmacy #[id number], Partial fill upon patient request if the prescription is for a schedule II o... Start Date: 12/16/21 Status: Ordered LORazepam 0.5 mg oral tablet See Instructions, 2 tablet By Mouth2 hours before mri, 2 at mri as needed for anxiety, # 4 tablet, 0 Refills, Maintenance, 12/13/22 15:57:00 EDT, [facility]/pharmacy #[id number], 157.48, cm, 10/03/22 10:52:00 EDT, Height, 78.5, kg, 04/17/22 10:39:00 EST, Dry Weight Start Date: 12/13/22 Status: Ordered meclizine 12.5 mg oral tablet [...] food, # 20 tablet, 1 Refills, Acute 240:00:00 EDT, 10/03/22 11:27:00 EDT, Tablet, [id number], Partial fill upon patient request if the prescription is for a schedule II opioid drug.... Start Date: 10/03/22 Stop Date: 10/04/23 Status: Ordered NIFEdipine 30 mg oral tablet, extended release 30 mg, 1, tablet, By Mouth, Daily, # 90 tablet, Refills 0, Tot. Refills 0, Maintenance, 12/17/21 23:15:00 EDT, Route to Pharmacy Electronically, [facility]/pharmacy #[id number], Partial fill upon patient request if the [...] 2 Refills, Maintenance, 11/18/21 23:58:00 EDT, Tablet, [facility]/pharmacy #[id number], Partial fill upon patient request if [...] S Outreach Member Role: PCP Address: Address: [address] [place] [address]- Care Team Related Persons Name: YG VALDEZ Address: AMER[employer] Address: home [address] [place] [address] [place] Name: FAVIO AHUMADA Address: home [address] [place] [address]
--- OUTSIDE RECORDS SUMMARY | 2023-10-30 10:44 | XMS_ITS | Continuity of Care Document ---
Author Organization [facility] Address [address] [place] [address]- Care Team Providers Care Environmental Lawyer Name Role Phone Lesia Bliss DO Primary Care Physician En[place] [facility] [place] Date(s): 12/22/21 - 01/21/[address] [address]- Attending Physician: Cheri Wlal Admitting Physician: Cheri Wall Referring Physician: Cheri [...] 12/16/21 8:43:00 EDT, Route to Pharmacy Electronically, [facility]/pharmacy #[id number], Partial fill upon patient request if the [...] 12/17/21 23:15:00 EDT, Route to Pharmacy Electronically, [facility]/pharmacy #[id number], Partial fill upon patient request if the [...] 01/04/23 0:00:00 EDT, 01/04/22 17:14:00 EDT, Tablet, [facility]/pharmacy #[id number], Partial fill upon patient request... Start Date: 01/04/22 Stop Date: 01/04/23 Status: Ordered Social History Social History Type Response Smoking Status Never (less than 100 in lifetime) entered on: 12/17/21 Sex Care Team Personnel Name: Lesia Bliss DO Address: [address] [place] [id number]
--- OUTSIDE RECORDS SUMMARY | 2023-10-30 10:45 | XMS_ITS | Continuity of Care Document ---
Author Organization [facility] ter Address [address] [place] [address]- Care Team Providers Care Inventory Manager Name Role Phone Lesia Bliss DO Primary Care Physician Encounter [facility] [place] Date(s): 07/10/21 - 07/10/[address] [address] Discharge Disposition: A-D/C Walkout Attending Physician: Tomy López MD Admitting Physician: Tomy López MD Referring Physician: Tomy López MD Medications dicyclomine 10 mg oral capsule 1 capsule = 10 mg, By Mouth, 2 times a day, # 60 capsule, 6 Refills, Maintenance, 05/20/19 11:15:00EST, Capsule, [id number], 158.5, cm, 05/20/19 10:43:00 EST, Height, 68, kg, 05/20/19 10:43:00 EST, Dry Weight Start Date: 05/20/19 Stop Date: 12/16/19 Status: Ordered Problem List Condition Effective Dates Status Health Status Inform ant Flank pain(Confirmed) Active Vital Signs Most recent to oldest [Reference Range]: 1 Weight 85 kg (07/10/21 2:15 PM) Oxygen Saturation [94-100 %] 100 % (07/10/21 2:15 PM) Pulse Rate [55-90 bpm] 94 bpm *H* (07/10/21 2:15 PM) Blood Pressure [90-138/55-84 mm Hg] 126/ 84mm Hg (07/10/21 2:15 PM) Respiratory Rate [16-30 br/min] 20 br/mi n (07/10/21 2:15 PM) Temperature [96.8-100.4 DegF] 98 DegF (07/10/21 2:15 PM) Temperature Route Oral (07/10/21 2:15 PM)
--- OUTSIDE RECORDS SUMMARY | 2023-10-30 10:45 | XMS_ITS | Continuity of Care Document ---
Demographics Address [address] [place] [address] Mobile Preferred Language Macedonian Marital Status Single Restorationism Affiliation Unknown Affiliatio n Race Unknown Ethnic Group Not or Lati no Author Organization [facility] Address [address] [place], [address] Floor, [address] [place] [address]- Care Team Providers Care Polysomnography Technician Name Role Phone Lesia Bliss DO Primary Care Physician Encounter [facility] [place] Date(s): 12/10/22 - 01/09/23 [facility] [address], [address], [address] [place] [address]- Allergies, Adverse Reactions, Alerts No Known Allergies [...] 12/16/21 8:43:00 EDT, Route to Pharmacy Electronically, [facility]/pharmacy #[id number], Partial fill upon patient request if the prescription is for a schedule II o... Start Date: 12/16/21 Status: Ordered LORazepam 0.5 mg oral tablet See Instructions, 2 tablet By Mouth2 hours before mri, 2 at mri as needed for anxiety, # 4 tablet, 0 Refills, Maintenance, 12/13/22 15:57:00 EDT, [facility]/pharmacy #[id number], 157.48, cm, 10/03/22 10:52:00 EDT, Height, 78.5, [...] 23:15:00 EDT, Route to [facility], [id number], Partial fill upon patient request if the [...] 2 Refills, Maintenance, 11/18/21 23:58:00 EDT, Tablet, [facility]/pharmacy #[id number], Partial fill upon patient request if [...] Team Personnel Name: Lesia Bliss DO Position: [facility] Outreach Member Role: PCP Address: Address: [address] [place] [address]- Care Team Related Persons Name: YG VALDEZ Address: AMER[employer] Address: home [address] [place] [address] [place] Name: FAVIO AHUMADA Address: home [address] [place] [address]
--- OUTSIDE RECORDS SUMMARY | 2023-10-30 10:45 | XMS_ITS | Continuity of Care Document ---
Author Organization [facility] Address [address] [place] [address]- Care Team Providers Care Executive Wellness Programs Director Name Role Phone DalialuisLesia hoffmann DO Primary Care Physician Encounter [facility] Date(s): 11/03/21 - 12/03/21 [facility] [address] [place] [address]- Allergies, Adverse Reactions, Alerts No Known Allergies Medications FREESTYLE 28G LANCETS FREESTYLE 28G LANCETS, See Instructions, # 100 Unknown, 3 Refills, TO TEST BLOOD SUGAR 4 X DAY., 158, cm, 11/18/21 22:42:00 EDT, Height, 83.9, kg, 11/18/21 22:41:00 EDT, Dry Weight Start Date: 11/21/21 Status: Ordered Freestyle Lite Lancets See Instructions, # 1 [...] Dry Weight Start Date: 08/03/21 Status: Ordered FREESTYLE LITE TEST STRIP FREESTYLE LITE TEST STRIP, See Instructions, # 100 Unknown, 3 Refills, TO TEST BLOOD SUGAR 4 X DAY., 158, cm, 11/18/21 22:42:00 EDT, Height, 83.9, kg, 11/18/21 22:41:00 EDT, Dry Weight Start Date: 11/23/21 Status: Ordered Freestyle Lite Test Strips See Instructions, # 1 pack/packet, Refills 3, Tot. Refills 3, Maintenance, To test blood sugar 4 x day. 1 Bottle= 100 test strips, 08/03/21 13:41:00 EDT, Compound, 85, kg, 07/11/21 17:36:00 EDT, Dry Weight Start Date: 08/03/21 Status: Ordered Pepcid 20 mg oral tablet 1 tablet = 20 mg, By Mouth, Daily at bedtime, # 30 tablet, 2 Refills, Maintenance, 11/18/21 23:58:00 EDT, Tablet, [facility]/pharmacy #[id number], Partial fill upon patient [...]
--- OUTSIDE RECORDS SUMMARY | 2023-10-30 10:45 | XMS_ITS | Continuity of Care Document ---
Author Organization [facility] Address [address] [place] [address]- Care Team Providers Care Imaging Nurse Name Role Phone Hillarywil Lesia CARRANZA Primary Care Physician [place] [facility] [place](s): 11/20/21 - 12/20/21 Maternal Medicine [address] [place] [address]- Allergies, Adverse Reactions, Alerts No Known Allergies [...] 12/16/21 8:43:00 EDT, Route to Pharmacy Electronically, [facility]/pharmacy #[id number], Partial fill upon patient request if the [...] 12/17/21 23:15:00 EDT, Route to Pharmacy Electronically, [facility]/pharmacy #[id number], Partial fill upon patient request if the prescription is for a schedule II opioid drug... Start Date: 12/17/21 Status: Ordered oxyCODONE 5 mg oral tablet 5 mg, 1, tablet, By Mouth, Every 4 hours, PRN, (7-10), # 12 tablet, Refills 0, Tot. Refills 0, Acute 12/30/21 8:44:00 EDT, Pain , Severe, 12/16/21 8:43:00 EDT, Route to Pharmacy Electronically, [facility]/pharmacy #[id number], Partial fill upon patient request if... Start Date: 12/16/21 Stop Date: 12/30/21 Status: Ordered Pepcid 20 mg oral tablet 1 tablet = 20 mg, By Mouth, Daily at bedtime, # 30 tablet, 2 Refills, Maintenance, 11/18/21 23:58:00 EDT, Tablet, [facility]/pharmacy #[id number], Partial fill upon patient request if the [...]
--- OUTSIDE RECORDS SUMMARY | 2023-10-30 10:45 | XMS_ITS | Continuity of Care Document ---
Author Organization [facility] Address [address] [place] [address]- Care Team Providers Care Foreign Language Instructor Name Role Phone Lesia Bliss DO Primary Care Physician En[place] [facility] [place] Date(s): 05/20/19 - 05/27/19 [facility] [address] [place] [address]- [facility] Attending Physician: Romina GARAY, Doug Ch Referring Physician: Lesia Bliss DO Medications dicyclomine 10 mg oral capsule 1 [...] to oldest [Reference Range]: 1 2 Height 158.5 cm (05/20/19 10:43 AM) 158.5 cm (05/20/19 10:43 AM) Weight 68 kg (05/20/19 10:43 AM) 68 kg (05/20/19 10:43 AM) Pulse Rate [55-90 bpm] 71 bpm (05/20/19 10:43 AM) Body Mass Index [18.5-24.99] 27.07 *H* (05/20/19 10:43 AM) 27.07 *H* (05/20/19 10:43 AM) Blood Pressure [80-130/50-80 mm Hg] 114/ 67mm Hg (05/20/19 10:43 AM) Blood pressure sites Arm, left (05/20/19 10:43 AM) Dry Weight 68 kg (05/20/19 10:43 AM)
--- OUTSIDE RECORDS SUMMARY | 2023-10-30 10:45 | XMS_ITS | Continuity of Care Document ---
Author Organization [facility] ter Address [address] [place] [address]- Care Team Providers Care Automobile Appraiser Name Role Phone HillaryerikLesia hoffmann DO Primary Care Physician Encounter [facility] [place] Date(s): 12/07/21 - 12/07/[address] [address]- Discharge Disposition: A-D/C Home Attending Physician: Zahida Finn MD Admitting Physician: Zahida Finn MD Referring Physician: Tomy López MD Allergies, [...] 2 Refills, Maintenance, 11/18/21 23:58:00 EDT, Tablet, [facility]/pharmacy #[id number], Partial fill upon patient request if [...] Most recent to oldest [Reference Range]: 1 Oxygen Saturation [94-100 %] 100 % (12/07/21 10:33 AM) Blood Pressure [90-138/55-84 mm Hg] 135/ 87mm Hg (12/07/21 10:33 AM) Respiratory Rate [16-30 br/min] 18 br/mi n (12/07/21 10:33 AM) Blood pressure sites Arm, right (12/07/21 10:33 AM)
--- OUTSIDE RECORDS SUMMARY | 2023-10-30 10:45 | XMS_ITS | Continuity of Care Document ---
Author Organization [facility] ter Address [address] [place] [address]- Care Team Providers Care Manager Etl Name Role Phone Lesia Bliss DO Primary Care Physician [place] [facility] [place]25[place] - 12/26/[address] [address]- Discharge Disposition: A-D/C Home Attending Physician: Tomy [...] Route to Pharmacy Electronically, [facility]/pharmacy #[id number], Partial fill upon patient request if the prescription is for a schedule II o... Start Date: 12/16/21 Status: Ordered ibuprofen 600 mg oral tablet 600 mg, Tablet, By Mouth, Once, PRN for Pain , Mild, STAT, 12/25/21 22:34:00 EDT Start Date: 12/25/21 Stop Date: 12/25/21 Status: Completed ibuprofen 800 mg oral tablet 800 mg, [...] 11/18/21 23:58:00 EDT, Tablet, [facility]/pharmacy #[id number], Partial fill upon patient request if the prescription is for a schedule II opioid drug., 158, cm, 11/18/21 22:42:00 E... Start Date: 11/18/21 Stop Date: 02/16/22 Status: Ordered 1 By Mouth, Daily, 0 Refills, Maintenance, 07/11/21 17:51:00 EDT, Partial fill upon patient request if the prescription is for a schedule II opioid drug. Start Date: 07/11/21 Status: Ordered Tylenol 325 mg oral tablet 975 mg, Tablet, By Mouth, Once, PRN for Pain , Mild, STAT, 12/25/21 22:34:00 EDT Start Date: 12/25/21 Stop Date: 12/25/21 Status: Completed Vital Signs Most recent to oldest [Reference Range]: 1 2 3 Height 158 cm (12/25/21 10:08 PM) Weight 97.7 kg (12/25/21 9:54 PM) Oxygen Saturation [94-100 %] 99 % (12/26/21 8:05 AM) 97 % (12/26/21 6:02 AM) 98 % (12/26/21 5:02 AM) Blood Pressure [90-138/55-84 mm Hg] 130/72mm Hg (12/26/21 8:05 AM) 128/76mm Hg (12/26/21 6:02 AM) 121/71mm Hg (12/26/21 5:02 AM) Respiratory Rate [16-30 br/min] 18 br/min (12/26/21 9:00 AM) 18 br/min (12/26/21 9:00 AM) 18 br/min (12/26/21 8:05 AM) Temperature [96.8-100.4 DegF] 97.9 DegF (12/25/21 10:08 PM) Mode of Delivery (Oxygen) Room air (12/26/21 8:05 AM) Room air (12/25/21 10:08 PM) Blood pressure sites Arm, right (12/26/21 8:05 AM) Arm, left (12/25/21 10:08 PM) Temperature Route Oral (12/25/21 10:08 PM) Dry Weight 97.7 kg (12/25/21 9:54 PM) Weight Obtained Via Standing scale (12/25/21 9:54 PM) Dry Weight Obtained Via Standing scale (12/25/21 9:54 PM) Social History Social History Type Response Smoking Status Never (less than 100 in lifetime) entered on: 12/17/21 Sex Care Team Personnel Name: Lesia Bliss DO Address: [address] [place] [address]-
--- OUTSIDE RECORDS SUMMARY | 2023-10-30 10:45 | XMS_ITS | Continuity of Care Document ---
Author Organization [facility] ter Address [address] [place] [address]- Care Team Providers Care Crutching Contractor Name Role Phone Lesia Bliss DO Primary Care Physician Encounter [facility] [place] Date(s): 11/16/21 - 11/16/[address] [address]- Discharge Disposition: A-D/C Home Attending Physician: Tomy [...]
--- OUTSIDE RECORDS SUMMARY | 2023-10-30 10:45 | XMS_ITS | Continuity of Care Document ---
Demographics Address [address] [place] [address] Mobile Preferred Language Maltese Marital Status Single Amish Affiliation Unknown Affiliatio n Race Unknown Ethnic Group Not or Lati no Author Organization [facility] Address [address], [address] Floor, [address] [place] [address]- Care Team Providers Care Senior Integration Architect Name Role Phone Lesia Bliss DO Primary Care Physician Encounter [facility] [place] Date(s): 12/21/22 - 01/20/23 [facility] [address], [address] Floor, [address] [place] [address]- Allergies, Adverse Reactions, Alerts No Known Allergies [...] 8:43:00 EDT, Route to Pharmacy Electronically, [facility]/pharmacy #[id number], Partial fill upon patient request if the prescription is for a schedule II o... Start Date: 12/16/21 Status: Ordered LORazepam 0.5 mg oral tablet See Instructions, 2 tablet By Mouth2 hours before mri, 2 at mri as needed for anxiety, # 4 tablet, 0 Refills, Maintenance, 12/13/22 15:57:00 EDT, [facility]/pharmacy #[id number], 157.48, cm, 10/03/22 10:52:00 EDT, Height, 78.5, [...] 23:15:00 EDT, Route to [facility]acy [facility]ically, [id number], Partial fill upon patient request if the [...] 2 Refills, Maintenance, 11/18/21 23:58:00 EDT, Tablet, [facility]/pharmacy #[id number], Partial fill upon patient request [...] Team Personnel Name: Lesia Bliss DO Position: [facility] Outreach Member Role: PCP Address: Address: [address] [place] [address]- Care Team Related Persons Name: YG VALDEZ Address: AMERCN Address: home [address] [address] [place] Name: FAVIO AHUMADA Address: home [address] [place] [address]
--- OUTSIDE RECORDS SUMMARY | 2023-10-30 10:45 | XMS_ITS | Continuity of Care Document ---
Author Organization [facility] ter Address [address] [place] [address]- Care Team Providers Care Morning News Anchor Name Role Phone DalialuisLesia hoffmann DO Primary Care Physician [place] [facility] [place]/08/[place] - 09/08/[address] [address]- Attending Physician: Kaya Rooney CNM Admitting Physician: Kaya Rooney CNM Referring Physician: Kaya Rooney CNM Allergies, Adverse Reactions, Alerts No Known Allergies [...]
--- OUTSIDE RECORDS SUMMARY | 2023-10-30 10:45 | XMS_ITS | Continuity of Care Document ---
Author Organization [facility] Address [address] [place] [address]- Care Team Providers Care Tobacco Wrapping Machine Tender Name Role Phone Ruthy CARRANZA Lesia Primary Care Physician [place] [facility](s): 10/23/21 - 11/22/21 [facility] [address] [place] [address]- Allergies, Adverse Reactions, Alerts No Known Allergies [...] Acute 11/25/21 23:57:00EDT, 11/18/21 23:57:00 EDT, Cream, [facility]/pharmacy #[id number], Partial [...]
--- OUTSIDE RECORDS SUMMARY | 2023-10-30 10:45 | XMS_ITS | Continuity of Care Document ---
Author Organization [facility] ter Address [address] [place] [address]- Care Team Providers Care Tuckpointer Cleaner Caulker Name Role Phone HillaryerikLesia hoffmann DO Primary Care Physician [place] [facility] [place] - 11/30/[address] [address]- Discharge Disposition: A-D/C Home Attending Physician: Tomy [...]
--- OUTSIDE RECORDS SUMMARY | 2023-10-30 10:45 | XMS_ITS | Continuity of Care Document ---
Author Organization [facility] Address [address] [facility], 3r d Floor, [address] [place] [address]- Care Team Providers Care Retail Zone Specialist Name Role Phone Lesia Bliss DO Primary Care Physician [place] [facility] [place] 01/04/22 - 02/03/22 [facility] [address], [address] Floor, [address] [place] [address]- Attending Physician: Cheri Wall Admitting Physician: Cheri [...] 12/16/21 8:43:00 EDT, Route to Pharmacy Electronically, [facility]/pharmacy #[id number], Partial fill upon patient request if the [...] 23:15:00 EDT, Route to [facility], [id number], Partial fill upon patient request if the [...] Refills, Maintenance, 11/18/21 23:58:00 EDT, Tablet, [id number], Partial fill upon patient request if the [...] 01/04/23 0:00:00 EDT, 01/04/22 17:14:00 EDT, Tablet, [facility]/pharmacy #[id number], Partial fill upon patient request... Start Date: 01/04/22 Stop Date: 01/04/23 Status: Ordered Social History Social History Type Response Smoking Status Never (less than 100 in lifetime) entered on: 12/17/21 Sex Patient Care team information Personnel Name: Lesia Bliss DO Address: Address: [address] [place] [id number]
--- OUTSIDE RECORDS SUMMARY | 2023-10-30 10:45 | XMS_ITS | Continuity of Care Document ---
Author Organization [facility] Address [address] [place] [address]- Care Team Providers Care Shot Hole Driller Name Role Phone DalialuisLesia hoffmann DO Primary Care Physician Encounter [facility] [place] Date(s): 09/12/21 - 10/12/[address] [address]- Allergies, Adverse Reactions, Alerts No Known Allergies [...]
--- OUTSIDE RECORDS SUMMARY | 2023-10-30 10:45 | XMS_ITS | Continuity of Care Document ---
Author Organization [facility] Address [address] [place] [address]- Care Team Providers Care Oil House Attendant Name Role Phone Ruthy CARRANZA Lesia Primary Care Physician [place] [facility] [place] 10/23/21 - 11/22/21 [facility] [address] [place] [address]- Allergies, Adverse Reactions, Alerts No Known Allergies [...] Acute 11/25/21 23:57:00EDT, 11/18/21 23:57:00 EDT, Cream, [facility]/pharmacy #[id number], Partial fill upon patient request if the prescription is for a schedule II opioid drug., 1 appli... Start Date: 11/18/21 Stop Date: 11/25/21 Status: Ordered Pepcid 20 mg oral tablet 1 tablet = 20 mg, By Mouth, Daily at bedtime, # 30 tablet, 2 Refills, Maintenance, 11/18/21 23:58:00 EDT, Tablet, [facility]/pharmacy #[id number], Partial fill upon patient request if [...]
--- OUTSIDE RECORDS SUMMARY | 2023-10-30 10:45 | XMS_ITS | Continuity of Care Document ---
Author Organization [facility] Address [address] [facility], 3r d Floor, [address] [place] [address]- Care Team Providers Care English As A Second Language Teacher Name Role Phone Lesia Bliss DO Primary Care Physician Encounter [facility] [place] Date(s): 12/29/21 - 01/28/22 [facility] [address], [address], [address] [place] [address]- [place] Allergies, Adverse Reactions, Alerts No Known Allergies [...] 12/16/21 8:43:00 EDT, Route to Pharmacy Electronically, [facility]/pharmacy #[id number], Partial fill upon patient request if the [...] 12/17/21 23:15:00 EDT, Route to Pharmacy Electronically, [facility]/pharmacy #[id number], Partial fill upon patient request if the [...] 0:00:00 EDT, 01/04/22 17:14:00 EDT, [facility]t, [id number], Partial fill upon patient request... Start Date: 01/04/22 Stop Date: 01/04/23 Status: Ordered Social History Social History Type Response Smoking Status Never (less than 100 in lifetime) entered on: 12/17/21 Sex Patient Care team information Personnel Name: Lesia Bliss DO Address: Address: [address] [place] [address]
--- OUTSIDE RECORDS SUMMARY | 2023-10-30 10:45 | XMS_ITS | Continuity of Care Document ---
Author Organization [facility] Address [address] [place] [address]- Care Team Providers Care Marketing Segment Manager Name Role Phone DalialuisLesia hoffmann DO Primary Care Physician Encounter [facility] Date(s): 11/07/21 - 12/07/21 [facility] [address] [place] [address]- Allergies, Adverse Reactions, Alerts No Known Allergies [...] 2 Refills, Maintenance, 11/18/21 23:58:00 EDT, Tablet, [facility]/pharmacy #[id number], Partial fill upon patient request [...]
--- OUTSIDE RECORDS SUMMARY | 2023-10-30 10:45 | XMS_ITS | Continuity of Care Document ---
Author Organization [facility] ter Address [address] [place] [address]- Care Team Providers Care Applications Systems Engineer Name Role Phone HillaryerikLesia hoffmann DO Primary Care Physician En[place] [facility] [place] Date(s): 01/23/22 - 01/23/[address] [address]- Discharge Disposition: Transferred to [facility]-term [facility] hospit Attending Physician: Damon Pierce MD Admitting Physician: Damon Pierce MD Referring Physician: Not on Staff, Referring MD Allergies, Adverse Reactions, Alerts No Known [...] 12/16/21 8:43:00 EDT, Route to Pharmacy Electronically, [facility]/pharmacy #[id number], Partial fill upon patient request if the [...] 12/17/21 23:15:00 EDT, Route to Pharmacy Electronically, [facility]/pharmacy #[id number], Partial fill upon patient request if the [...] 01/04/23 0:00:00 EDT, 01/04/22 17:14:00 EDT, Tablet, [facility]/pharmacy #[id number], Partial fill upon patient request... Start Date: 01/04/22 Stop Date: 01/04/23 Status: Ordered Vital Signs Most recent to oldest [Reference Range]: 1 2 3 Oxygen Saturation [94-100 %] 98 % (01/23/22 9:30 PM) 100 % (01/23/22 7:55 PM) 99 % (01/23/22 7:30 PM) Pulse Rate [55-90 bpm] 85 bpm (01/23/22 9:30 PM) 92 bpm *H* (01/23/22 7:55 PM) 104 bpm *H* (01/23/22 7:30 PM) Blood Pressure [90-138/55-84 mm Hg] 140/80mm Hg *H* (01/23/22 9:30 PM) 136/85mm Hg (01/23/22 7:55 PM) 136/81mm Hg (01/23/22 7:30 PM) Respiratory Rate [16-30 br/min] 16 br/min (01/23/22 9:30 PM) 18 br/min (01/23/22 7:55 PM) 18 br/min (01/23/22 6:54 PM) Temperature [96.8-100.4 DegF] 98.3 DegF (01/23/22 7:55 PM) 98.2 DegF (01/23/22 7:30 PM) 98.0 DegF (01/23/22 5:12 PM) Mode of Delivery (Oxygen) Room air (01/23/22 9:30 PM) Room air (01/23/22 7:55 PM) Room air (01/23/22 7:30 PM) Blood pressure sites Arm, right (01/23/22 9:30 PM) Arm, right (01/23/22 7:55 PM) Arm, right (01/23/22 7:30 PM) Temperature Route Oral (01/23/22 5:12 PM) Social History Social History Type Response Smoking Status Never (less than 100 in lifetime) entered on: 12/17/21 Sex Care Team Personnel Name: Lesia Bliss DO Address: [address] [place] [address]
--- OUTSIDE RECORDS SUMMARY | 2023-10-30 10:45 | XMS_ITS | Continuity of Care Document ---
Author Organization [facility] ter Address [address] [place] [address]- Care Team Providers Care Apple Press Operator Name Role Phone Ruthy CARRANZALesia Primary Care Physician [place] [facility] [place](s): 03/06/22 - 04/06/[address] [address]- Attending Physician: Jose Luis Carvalho MD Admitting [...] Pharmacy Electronically, [facility]/pharmacy #[id number], Partial fill upon patient request if the [...] 23:15:00 EDT, Route to [facility], [id number], Partial fill upon patient request if the [...] 01/04/23 0:00:00 EDT, 01/04/22 17:14:00 EDT, Tablet, [facility]/pharmacy #[id number], Partial fill upon patient request... Start Date: 01/04/22 Stop Date: 01/04/23 Status: Ordered Social History Social History Type Response Smoking Status Never (less than 100 in lifetime) entered on: 12/17/21 Sex Patient Care team information Care Team Personnel Name: Lesia Bliss DO Position: S Outreach Member Role: PCP Address: Address: [address] [place] [address]- Care Team Related Persons Name: YG VALDEZ Address: AMERCN Address: [address] [place] [address] [place] Name: FAVIO AHUMADA Address: [address] [place] [address]
--- OUTSIDE RECORDS SUMMARY | 2023-10-30 10:45 | XMS_ITS | Continuity of Care Document ---
Author Organization [facility] ter Address [address] [place] [address]- Care Team Providers Care Senior Mechanical Engineer Name Role Phone Ruthy CARRANZALesia Primary Care Physician En[place] [facility] [id number] Date(s): 12/14/21 - 12/16/[address] [address]- Discharge Disposition: A-D/C Home Attending Physician: Zahida [...] 8:43:00 ED... Start Date: 12/16/21 Status: Ordered Acetaminophen Tablet 650 mg, Tablet, By Mouth, (1-3), may give 325mg per patient preference and re- dose with 325mg within 4 hours, if needed. Patient should only receive a total of 650mg of Acetaminophen every 4 hours., 12/16/21 12:00:00 EDT Start Date: 12/16/21 Stop Date: 12/16/21 Status: Completed docusate sodium 100 mg oral capsule 100 mg, 1, capsule, By Mouth, 2 times a day, # 60 capsule, Refills 0, Tot. Refills 0, Maintenance, 12/16/21 8:43:00 EDT, Route to Pharmacy Electronically, [facility]/pharmacy #[id number], Partial fill upon patient request [...] 12/16/21 8:4... Start Date: 12/16/21 Status: Ordered oxyCODONE 5 mg oral tablet 5 mg, 1, tablet, By Mouth, Every 4 hours, PRN, (7-10), # 12 tablet, Refills 0, Tot. Refills 0, Acute 12/30/21 8:44:00 EDT, Pain , Severe, 12/16/21 8:43:00 EDT, Route to Pharmacy Electronically, [facility]/pharmacy #[id number], Partial fill upon patient request if... Start Date: 12/16/21 Stop Date: 12/30/21 Status: Ordered OxyCODONE IR Tablet 5 mg, Tablet, By Mouth, Every 3 hours, PRN for Pain , Severe, (7-10), Routine, 12/15/21 13:38:00 EDT Start Date: 12/15/21 Stop Date: 12/17/21 Status: Discontinued Pepcid 20 mg oral tablet 1 tablet = 20 mg, By Mouth, Daily at bedtime, # 30 tablet, 2 Refills, Maintenance, 11/18/21 23:58:00 EDT, Tablet, [facility]/pharmacy #[id number], Partial fill upon patient request if the prescription is for a schedule II opioid drug., 158, cm, 11/18/21 22:42:00 E... Start Date: 11/18/21 Stop Date: 02/16/22 Status: Ordered 1 By Mouth, Daily, 0 Refills, Maintenance, 07/11/21 17:51:00 EDT, Partial fill upon patient request if the prescription is for a schedule II opioid drug. Start Date: 07/11/21 Status: Ordered Procedures Procedure Date Related Diagnosis Body Site Status delivery only; 12/14/21 C ompleted Vital Signs Most recent to oldest [Reference Range]: 1 2 3 4 Height 158 cm (12/16/21 12:00 PM) 158 cm (12/16/21 10:00 AM) 158 cm (12/16/21 8:00 AM) Weight 83.4 kg (12/14/21 11:18 AM) Oxygen Saturation [94-100 %] 99 % (12/16/21 12:00 PM) 97 % (12/16/21 10:00 AM) 97 % (12/16/21 8:00 AM) Pulse Rate [55-90 bpm] 75 bpm (12/16/21 12:00 PM) 84 bpm (12/16/21 10:00 AM) 85 bpm (12/16/21 8:00 AM) Body Mass Index [18.5-24.99] 33.41 *>HHI* (12/14/21 11:18 AM) Blood Pressure [90-138/55-84 mm Hg] 144/91mm Hg *H* (12/16/21 12:00 PM) 134/79mm Hg (12/16/21 10:00 AM) 144/85mm Hg *H* (12/16/21 8:00 AM) Respiratory Rate [16-30 br/min] 17 br/min (12/16/21 2:14 PM) 18 br/min (12/16/21 12:00 PM) 18 br/min (12/16/21 10:50 AM) 18 br/min (12/16/21 10:50 AM) Temperature [96.8-100.4 DegF] 98.6 DegF (12/16/21 12:00 PM) 98.1 DegF (12/16/21 8:00 AM) 98.4 DegF (12/16/21 2:04 AM) Mode of Delivery (Oxygen) Room air (12/16/21 10:00 AM) Room air (12/16/21 8:00 AM) Room air (12/15/21 8:23 PM) Blood pressure sites Arm, right (12/16/21 12:00 PM) Arm, right (12/16/21 10:00 AM) Arm, right (12/16/21 8:00 AM) Temperature Route Oral (12/16/21 12:00 PM) Oral (12/16/21 10:00 AM) Oral (12/16/21 8:00 AM) Dry Weight 83.4 kg (12/14/21 11:18 AM)
--- OUTSIDE RECORDS SUMMARY | 2023-10-30 10:46 | XMS_ITS | Continuity of Care Document ---
Author Organization [facility] ter Address [address] [place] [address]- Care Team Providers Care Molded Goods Spot Picker Name Role Phone DalialuisLesia hoffmann DO Primary Care Physician Encounter [facility] [place] Date(s): 11/23/21 - 11/23/[address] [address]- Discharge Disposition: A-D/C Home Attending Physician: Tomy [...] Acute 11/25/21 23:57:00EDT, 11/18/21 23:57:00 EDT, Cream, [facility]/pharmacy #[id number], Partial fill upon patient request if the prescription is for a schedule II opioid drug., 1 appli... Start Date: 11/18/21 Stop Date: 11/25/21 Status: Ordered Pepcid 20 mg oral tablet 1 tablet = 20 mg, By Mouth, Daily at bedtime, # 30 tablet, 2 Refills, Maintenance, 11/18/21 23:58:00 EDT, Tablet, [facility]/pharmacy #[id number], Partial fill upon patient request if [...]
--- OUTSIDE RECORDS SUMMARY | 2023-10-30 10:46 | XMS_ITS | Continuity of Care Document ---
Author Organization [facility] Address [address] [place] [address]- Care Team Providers Care Wood Boring Machine Operator Name Role Phone Lesia Bliss DO Primary Care Physician [place] [facility] [place]s): 10/04/21 - 11/03/21 [facility] [address] [place] [address] Allergies, [...]
--- OUTSIDE RECORDS SUMMARY | 2023-10-30 10:46 | XMS_ITS | Continuity of Care Document ---
Author Organization [facility] Address [address] [place] [address]- Care Team Providers Care Skein Bander Name Role Phone Lesia Bliss DO Primary Care Physician [place] [facility] [place] - 05/30/19 [facility] [address] [place] [address]- [facility] Attending Physician: Cheri Wall Admitting Physician: Cheri Wall Referring Physician: Cheri Wall Medications dicyclomine 10 mg oral capsule 1 [...]
--- OUTSIDE RECORDS SUMMARY | 2023-10-30 10:46 | XMS_ITS | Continuity of Care Document ---
Author Organization [facility] Address [address] [place] [address]- Care Team Providers Care Marine Geologist Name Role Phone Lesia Bliss DO Primary Care Physician En[place] [facility] [place] Date(s): 11/27/21 - 12/27/21 [facility] [address] [place] [id number] Attending Physician: Cheri Wall Admitting Physician: Cheri Wall Referring Physician: Admtr ArLydia Allergies, Adverse Reactions, Alerts No Known Allergies [...] 12/16/21 8:43:00 EDT, Route to Pharmacy Electronically, [facility]/pharmacy #[id number], Partial fill upon patient request if the [...] 12/17/21 23:15:00 EDT, Route to Pharmacy Electronically, [facility]/pharmacy #[id number], Partial fill upon patient request if the prescription is for a schedule II opioid drug... Start Date: 12/17/21 Status: Ordered oxyCODONE 5 mg oral tablet 5 mg, 1, tablet, By Mouth, Every 4 hours, PRN, (7-10), # 12 tablet, Refills 0, Tot. Refills 0, Acute 12/30/21 8:44:00 EDT, Pain , Severe, 12/16/21 8:43:00 EDT, Route to Pharmacy Electronically, [facility]/pharmacy #[id number], Partial fill upon patient request if... Start Date: 12/16/21 Stop Date: 12/30/21 Status: Ordered Pepcid 20 mg oral tablet 1 tablet = 20 mg, By Mouth, Daily at bedtime, # 30 tablet, 2 Refills, Maintenance, 11/18/21 23:58:00 EDT, Tablet, [facility]/pharmacy #[id number], Partial fill upon patient request if the [...] Team Personnel Name: Lesia Bliss DO Address: [address] [place] [address]
--- OUTSIDE RECORDS SUMMARY | 2023-10-30 10:46 | XMS_ITS | Continuity of Care Document ---
Author Organization [facility] ter Address [address] [place] [address]- Care Team Providers Care Hot Saw Operator Name Role Phone Lesia Bliss DO Primary Care Physician En[facility] [place] Date(s): 06/05/21 - 06/05/[address] [address]- Discharge Disposition: A-D/C Walkout Attending Physician: Not on Staff, Attending MD Admitting Physician: Not on Staff, Admitting MD Referring Physician: Not on Staff, Referring MD Medications dicyclomine 10 mg oral capsule [...] 1 2 3 Oxygen Saturation [94-100 %] 95 % (06/05/21 3:07 PM) 98 % (06/05/21 1:03 PM) 98 % (06/05/21 10:51 AM) Pulse Rate [55-90 bpm] 74 bpm (06/05/21 3:07 PM) 84 bpm (06/05/21 1:03 PM) 79 bpm (06/05/21 10:51 AM) Blood Pressure [71-110/30-71 mm Hg] 130/72mm Hg *H* (06/05/21 3:07 PM) 126/70mm Hg *H* (06/05/21 1:03 PM) 129/63mm Hg *H* (06/05/21 10:51 AM) Respiratory Rate [16-30 br/min] 16 br/min (06/05/21 3:07 PM) 16 br/min (06/05/21 1:03 PM) 16 br/min (06/05/21 10:51 AM) Temperature [96.8-100.4 DegF] 98.2 DegF (06/05/21 3:07 PM) 98.2 DegF (06/05/21 1:03 PM) 98.4 DegF (06/05/21 10:51 AM) Mode of Delivery (Oxygen) Room air (06/05/21 3:07 PM) Room air (06/05/21 1:03 PM) Room air (06/05/21 10:51 AM) Blood pressure sites Arm, left (06/05/21 3:07 PM) Arm, left (06/05/21 1:03 PM) Arm, left (06/05/21 10:51 AM) Temperature Route Oral (06/05/21 3:07 PM) Oral (06/05/21 1:03 PM) Oral (06/05/21 10:51 AM)
--- OUTSIDE RECORDS SUMMARY | 2023-10-30 10:46 | XMS_ITS | Continuity of Care Document ---
Author Organization [facility] Address [address] [facility], 3r d Floor, [address] [place] [address]- Care Team Providers Care Daily Sales Audit Clerk Name Role Phone Lesia Bliss DO Primary Care Physician En[place] [facility] [place] Date(s): 10/03/22 - 11/02/22 [facility] [address], [address] Floor, [address] [place] [address]- Attending Physician: Cheri Wall Admitting Physician: Cheri [...] 12/16/21 8:43:00 EDT, Route to Pharmacy Electronically, [facility]/pharmacy #[id number], Partial fill upon patient request if the prescription is for a schedule II o... Start Date: 12/16/21 Status: Ordered meclizine 12.5 mg oral tablet 1 tablet = 12.5 mg, By Mouth, 3 times a day, PRN for dizziness, # 30 tablet, 0 Refills, Maintenance, 01/24/22 0:36:00 EDT, Tablet, [facility]/pharmacy #[id number], Partial fill upon patient request if the [...] 23:15:00 EDT, [facility], [id number], Partial fill upon patient request if the prescription is for a schedule II opioid drug... Start Date: 12/17/21 Status: Ordered nortriptyline 10 mg oral capsule See Instructions, take one tablet nightly for 1 week then increase to 2 tablets nightly., # 49 tablet, Refills 0, Tot. Refills 0, Maintenance, 10/03/22 11:26:00 EDT, Instructions Replace Required Details, [facility] to [facility]... Start Date: 10/03/22 Status: Ordered Oxycodone = 5 mg, By [...] Outreach Member Role: PCP Address: Address: [address] [place] [address]- Care Team Related Persons Name: YG VALDEZ Address: AMER[employer] Address: home [address] [place] [address] [place] Name: FAVIO AHUMADA Address: [address] [place] [address]
--- OUTSIDE RECORDS SUMMARY | 2023-10-30 10:46 | XMS_ITS | Continuity of Care Document ---
Author Organization [facility] Address [address] [place] [address]- Care Team Providers Care Statistical Geneticist Name Role Phone Ruthy CARRANZALesia Primary Care Physician En[place] [facility] [place] Date(s): 10/23/21 - 11/24/21 [facility] [address] [place] [address] Attending Physician: Tanvir Thrasher MD Admitting Physician: Price GARAY, Tanvir Referring Physician: Berenice Gates NP Allergies, Adverse Reactions, Alerts No Known Allergies [...] Acute 11/25/21 23:57:00EDT, 11/18/21 23:57:00 EDT, Cream, [facility]/pharmacy #[id number], Partial fill upon [...]
--- OUTSIDE RECORDS SUMMARY | 2023-10-30 10:46 | XMS_ITS | Continuity of Care Document ---
Author Organization [facility] ter Address [address] [place] [address]- Care Team Providers Care Machine Stonecutter Name Role Phone Ruthy CARRANZALesia Primary Care Physician Encounter [facility] Date(s): 12/12/21 - 01/17/[address] [address]- Attending Physician: Zahida Finn MD Admitting Physician: [...] 12/16/21 8:43:00 EDT, Route to Pharmacy Electronically, [facility]/pharmacy #[id number], Partial fill upon patient request if the [...] 12/17/21 23:15:00 EDT, Route to Pharmacy Electronically, [facility]/pharmacy #[id number], Partial fill upon patient request if the [...] 2 Refills, Maintenance, 11/18/21 23:58:00 EDT, Tablet, [facility]/pharmacy #[id number], Partial fill upon [...] 2, # 9 tablet, 0 Refills, Acute 09/08/23 0:00:00 EDT, 01/04/22 17:14:00 EDT, Tablet, [id number], Partial fill upon patient request... Start Date: 01/04/22 Stop Date: 01/04/23 Status: Ordered Social History Social History Type Response Smoking Status Never (less than 100 in lifetime) entered on: 12/17/21 Sex Care Team Personnel Name: Lesia Bliss DO Address: [address] [place] [address]
--- OUTSIDE RECORDS SUMMARY | 2023-10-30 10:46 | XMS_ITS | Continuity of Care Document ---
Author Organization [facility] Address [address] [place] [address]- Care Team Providers Care Hydrodynamics Teacher Name Role Phone Lesia Bliss DO Primary Care Physician Encounter [facility] Date(s): 12/06/21 - 01/05/22 [facility] [address] [place] [address]- Allergies, Adverse Reactions, Alerts No Known Allergies [...] 12/16/21 8:43:00 EDT, Route to Pharmacy Electronically, [facility]/pharmacy #[id number], Partial fill upon patient request if the [...] 12/17/21 23:15:00 EDT, Route to Pharmacy Electronically, [facility]/pharmacy #[id number], Partial fill upon patient request if the [...] Personnel Name: Lesia Bliss DO Address: [address] [place] [address]
--- OUTSIDE RECORDS SUMMARY | 2023-10-30 10:46 | XMS_ITS | Continuity of Care Document ---
Author Organization [facility] ter Address [address] [place] [address]- Care Team Providers Care Operations Lieutenant Name Role Phone Lesia Bliss DO Primary Care Physician Encounter [facility] Date(s): 01/23/22 - 01/24/[address] [address]- Discharge Disposition: A-D/C Home Attending Physician: Titi Aguayo MD Admitting Physician: Titi Aguayo MD Referring Physician: Titi Aguayo MD Allergies, Adverse Reactions, Alerts No Known [...] 12/16/21 8:43:00 EDT, Route to Pharmacy Electronically, [facility]/pharmacy #[id number], Partial fill upon patient request if the [...] 12/17/21 23:15:00 EDT, Route to Pharmacy Electronically, [facility]/pharmacy #[id number], Partial fill upon patient request if the [...] 01/04/23 0:00:00 EDT, 01/04/22 17:14:00 EDT, Tablet, [facility]/pharmacy #[id number], Partial fill upon patient request... Start Date: 01/04/22 Stop Date: 01/04/23 Status: Ordered Vital Signs Most recent to oldest [Reference Range]: 1 Pulse Rate [55-90 bpm] 88 bpm (01/23/22 10:30 PM) Blood Pressure [90-138/55-84 mm Hg] 132/ 82mm Hg (01/23/22 10:30 PM) Respiratory Rate [16-30 br/min] 16 br/mi n (01/23/22 10:30 PM) Temperature [96.8-100.4 DegF] 98.5 DegF (01/23/22 10:30 PM) Blood pressure sites Arm, right (01/23/22 10:30 PM) Temperature Route Oral (01/23/22 10:30 PM) Social History Social History Type Response Smoking Status Never (less than 100 in lifetime) entered on: 12/17/21 Sex Patient Care team information Personnel Name: Lesia Bliss DO Address: Address: [address], [place] [address]
--- OUTSIDE RECORDS SUMMARY | 2023-10-30 10:46 | XMS_ITS | Continuity of Care Document ---
Author Organization [facility] ter Address [address] [place] [address]- Care Team Providers Care Manager Ethics Name Role Phone Hillarywil CARRANZALesia Primary Care Physician En[place] [facility] Date(s): 04/17/22 - 04/17/[address] [address]- Discharge Disposition: A-D/C Home Attending Physician: Casimiro Bettencourt MD Admitting Physician: Casimiro Bettencourt MD Referring Physician: Casimiro Bettencourt MD Allergies, Adverse Reactions, Alerts No Known [...] 12/16/21 8:43:00 EDT, Route to Pharmacy Electronically, [facility]/pharmacy #[id number], Partial fill upon patient request if the [...] 23:15:00 EDT, [facility], [id number], Partial fill upon patient request if the [...] patient reques... Start Date: 02/01/22 Status: Ordered Oxycodone = 5 mg, By [...] Date: 11/18/21 Stop Date: 02/16/22 Status: Ordered SUMAtriptan 100 mg oral tablet 1 tablet = 100 mg, By Mouth, Daily, PRN for migraine headache, may repeat dose after 2 hours up to a maximum of 2, # 9 tablet, 0 Refills, Acute 01/04/23 0:00:00 EDT, 01/04/22 17:14:00 EDT, Tablet, [facility]/pharmacy #[id number], Partial fill upon patient request... Start Date: 01/04/22 Stop Date: 01/04/23 Status: Ordered tamsulosin 0.4 mg oral capsule 0.4 mg, 1, capsule, By Mouth, Daily at bedtime, # 30 capsule, Refills 0, Maintenance, 04/16/22 9:07:00 EST, Partial fill upon patient request if the prescription is for a schedule II opioid drug. Start Date: 04/16/22 Status: Ordered Vital Signs Most recent to oldest [Reference Range]: 1 2 3 Height 157.48 cm (04/17/22 10:39 AM) 157.48 cm (04/16/22 9:15 AM) Weight 78.5 kg (04/17/22 10:39 AM) Oxygen Saturation [94-100 %] 99 % (04/17/22 12:45 PM) 98 % (04/17/22 12:33 PM) 100 % (04/17/22 12:15 PM) Pulse Rate [55-90 bpm] 71 bpm (04/17/22 10:39 AM) Body Mass Index [18.5-24.99 kg/m2] 31.65 kg/m2 *>HHI* (04/17/22 10:39 AM) Blood Pressure [90-138/55-84 mm Hg] 124/70mm Hg (04/17/22 12:45 PM) 119/68mm Hg (04/17/22 12:33 PM) 120/92mm Hg (04/17/22 12:15 PM) Respiratory Rate [16-30 br/min] 12 br/min *L* (04/17/22 12:45 PM) 13 br/min *L* (04/17/22 12:33 PM) 14 br/min *L* (04/17/22 12:15 PM) Temperature [96.8-100.4 DegF] 98 DegF (04/17/22 12:45 PM) 98.2 DegF (04/17/22 12:04 PM) 98.1 DegF (04/17/22 10:39 AM) Liters per Minute 6 L/min (04/17/22 12:15 PM) 6 L/min (04/17/22 12:04 PM) Mode of Delivery (Oxygen) Room air (04/17/22 12:45 PM) Room air (04/17/22 12:33 PM) Simple face mask (04/17/22 12:15 PM) Blood pressure sites Arm, right (04/17/22 12:04 PM) Arm, right (04/17/22 10:39 AM) Temperature Route Temporal (04/17/22 12:45 PM) Temporal (04/17/22 12:04 PM) Femoral (04/17/22 10:39 AM) Dry Weight 78.5 kg (04/17/22 10:39 AM) 79.55 kg (04/16/22 9:15 AM) Weight Obtained Via Standing scale (04/17/22 10:39 AM) Dry Weight Obtained Via Standing scale (04/17/22 10:39 AM) Height Percentile 18.38 % 1 (04/17/22 10:39 AM) 18.38 % 2 (04/16/22 9:15 AM) Height ZScore -0.90 3 (04/17/22 10:39 AM) -0.90 4 (04/16/22 9:15 AM) Weight Percentile Per Age 92.65 % 5 (04/17/22 10:39 AM) BMI Percentile 95.05 6 (04/17/22 10:39 AM) BMI ZScore 1.65 7 (04/17/22 10:39 AM) Weight ZScore 1.45 8 (04/17/22 10:39 AM) 1Result Comment: ^~:!Percentile Source -CDC/WHO 2Result Comment: ^~:!Percentile Source -CDC/WHO 3Result Comment: ^~:!ZScore Source -CDC/WHO 4Result Comment: ^~:!ZScore Source -CDC/WHO 5Result Comment: ^~:!Percentile Source -CDC/WHO 6Result Comment: ^~:!Percentile Source -CDC/WHO 7Result Comment: ^~:!ZScore Source -CDC/WHO 8Result Comment: ^~:!ZScore Source -CDC/WHO Social History Social History Type Response Smoking Status Never (less than 100 in lifetime) entered on: 12/17/21 Sex Note * Sunitha France RN: PERFORM Event Display: Discharge/Transfer Note Hospital Authored Date: [id number] Nursing Discharge Note Entered On: 04/17/2022 13:11 EST Performed On: 04/17/2022 13:10 EST by Sunitha France RN Nursing Discharge Note 2 Discharge Time : 04/17/2022 13:11 EST Discharge Level of Care at Discharge : Home/[facility] Care Patient Left Unit Via : Wheelchair Patient Accompanied Off Unit with : Responsible adult DC Instructions Provided & Signed by Pt : Yes Patient Understands D/C Instructions : Yes Patient Instructions Discharge Signed : Yes Did Pt have Specialty Bed or Wound Vac : No Sunitha France RN - 04/17/2022 13:10 EST * Suntiha France RN: PERFORM Event Display: Patient Education/Instruction Authored Date: [id number] Inpatient Adult Discharge Instructions [address] [address] Name: ARYAN ANNE : 2000 Visit: 04/17/2022 09:24:00 Current Date: 04/17/2022 12:58 Account: [id number] Inpatient Adult Discharge Instructions We would like to thank you for allowing us to assist you with your healthcare needs. The following includes patient education materials and information regarding your injury/illness. Our entire staffstrives to provide an excellent experience for our patients and their families. PLEASE ENSURE YOU FOLLOW-UP PER THE INSTRUCTIONS BELOW! ?? YOUR OPINION IS IMPORTANT TO US! Please complete the survey you may receive by mail or email. Your feedback will be used to make improvements to the healthcare experiences of our patients and their families. Surveys are administered by [employer] ?? If further treatment with your primary care physician or another doctor is recommended, it is important for you to keep the appointment. Call your primary care physician or return to the Emergency Department immediately if your condition worsens, fails to improve, or new symptoms develop. If you need to find a doctor, you can call [facility] Campaign Monitor [facility] for a referral at [phone] or toll free at [phone] ([phone]) or log in to [email or web address].. ?? You can view and manage your care through the patient portal or by using a health care erica of your choosing. [employer] is a website that allows you to securely view your medical information including your hospital discharge summary, office visit summaries, medications and follow-up visits. You can also request appointments, renew medications, and request access to your medical information using a health care erica of your choosing, or just ask a question. You can enroll at [email or web address] or register during your next office visit. You have been discharged from [facility], Patient Care Unit: [facility]. If you have any questions regarding these instructions after you leave, please call us and we will be happy to assist you. [facility] Your Care Team Attending Physician Sg GARAY, Casimiro Morales Consulting Providers Braulio GARAY, Payam Discharging Providers Sg GARAY, Casimiro Morales Reason for Admission CALCULUS OF URETERDS CS Tests Performed Below is a partial list of the tests performed during your hospitalization. You may have had other tests and procedures not included in this list. Please discuss all test results with your provider. KIDNEY STONE ANALYSIS?-- Results Pending -- XR C-Arm < 1 Hour?-- Results Pending -- ? You will be contacted within 72 hours with your results. Primary Care Provider Lesia Bliss DO Advance Directive Health Care Proxy on File Yes - Health Care Proxy No qualifying data available. Discharge Vitals Temperature: 98 DegF Height: 157.48 cm Pulse Rate: 71 bpm Weight: 78.5 kg Respiratory Rate:??12 br/min??Low Body Mass Index:??31.65 kg/m2??Critical Systolic Blood Pressure: 124 mm Hg Body surface area: 1.85 Diastolic Blood Pressure: 70 mm Hg ?? Oxygen Saturation: 99 % ?? Studies Pending All tests and labs ordered during this hospital stay have been completed unless listed below. Please discuss all pending results with your provider listed above in these instructions. ?? Kidney Stone Analysis C-Arm < 1 Hour Urethrocystography Retrograde What to do next Instructions From Your Doctor Discharge Orders You Need to Schedule the Following Appointments Follow Up with??Casimiro Bettencourt When?? Where: [address] [facility], [place] [address]- Business (1) Follow Up with??Lesia Bliss DO When??In 0 days Where: [address] [place] [address]- Business (1) Discharge Medications ANNEARYAN OLIVO :2000 Visit Date:04/17/2022 Medications: Please continue your medications until treatment is completed or stopped by your provider. Medications not listed below should be discontinued. Discuss any questions related to medications with your provider. What How Much When Instructions Next Dose Changed Oxycodone 5 Milligram Oral Every 4 hours as needed for Pain , Moderate Unchanged Acetaminophen (acetaminophen 325 mg oral tablet) 650 Milligram Oral Every 4 hours (1-3), may give 325mg per patient preference and re-dose with 325mg within 4 hours, if needed. ?? Patient should only receive a total of 650mg of Acetaminophen every 4 hours. ?? Unchanged Docusate (docusate sodium 100 mg oral capsule) 1 capsule Oral Twice a day Unchanged Famotidine (Pepcid 20 mg oral tablet) 1 tab(s) Oral Daily at Bedtime Duration: 30 Days Unchanged Ibuprofen (ibuprofen 800 mg oral tablet) 1 tab(s) Oral Every 8 hours (4-6), may give 400mg per patient preference and re-dose with 400mg within 8 hours, if needed. ?? Patient should only receive a total of 800mg of Ibuprofen every 8 hours. ?? Unchanged Meclizine (meclizine 12.5 mg oral tablet) 1 tab(s) Oral 3 times a day as needed for for dizziness Unchanged NIFEdipine (NIFEdipine 30 mg oral tablet, extended release) 1 tab(s) Oral Daily Unchanged Nortriptyline (nortriptyline 10 mg oral capsule) See instructions take one tablet nightly for 1 week then increase to 2 tablets nightly. ?? Unchanged Nortriptyline (nortriptyline 25 mg oral capsule) 1 capsule Oral Daily at Bedtime rx to be filled after iniital titration ?? Unchanged Sumatriptan (SUMAtriptan 100 mg oral tablet) 1 tab(s) Oral Daily as needed for for migraine headache may repeat dose after 2 hours up to a maximum of 2 ?? Unchanged Tamsulosin (tamsulosin 0.4 mg oral capsule) 1 capsule Oral Daily at Bedtime Test Results Below is a partial list of the most recent Laboratory test results done prior to this discharge. You may have had other tests and procedures not included in this list. Please discuss all test resultswith your provider. Allergies (NKA means No Known Allergies) NKA Problems Active Problems??(1) Diabetes, gestational?? Education Materials Below is the list of Educational Leaflet Providered with your Discharge Instructions. Surgery Medical Daystay Surgical Overnight Discharge Instructions?? Valuables and Belongings I fully understand and agree that [facility] accepts no responsibility for all my personal property including clothing, toilet articles, radios, jewelry, dentures, hearing aids, rings, money, or any other property that is in my possession or is brought to me after admission. I understand certain valuables may be placed in a hospital safe for a short period of time. I understand that the hospital is not liable for loss or damage due to accident, fire, or other natural occurrence while said property is in the safe. I accept full responsibility for any personal property that I keep with me, and will not hold the hospital responsible in case of loss or disappearance. I acknowledge that i have been encouraged to send valuables and belongings home. ?? Review of Valuable and Belonging List: With patient Date for Pt to Sign Valuables/Belongings: 04/17/22 10:51:00 ?? Valuables & Belongings ?? Clothes Electronic devices Jewelry Monetary Items Personal devices Miscellaneous Medications (Valuables) Valuables at Bedside Coat, Pants, Shirt, Shoes Cell phone ? Valuables Sent Home ? Valuables Sent to Security ? Other Discharge Information ? Pulmonary Rehab Status?? Pulmonary Rehab Discharge Status?? Respiratory Rate:??12 br/min??Low ? Common Emergency Awareness Tips IS IT A STROKE? Act FAST and Check for these signs: FACE Does the face look uneven? ARM Does one arm drift down? SPEECH Does their speech sound strange? TIME Call at any sign of stroke ?? Heart Attack Signs Chest discomfort: Most heart attacks involve discomfort in the center of the chest and lasts more than a few minutes, or goes away and comes back. It can feel like uncomfortable pressure, squeezing, fullness or pain. Discomfort in upper body: Symptoms can include pain or discomfort in one or both arms, back, neck, jaw or stomach. Shortness of breath: With or without discomfort. Other signs: Breaking out in a cold sweat, nausea, or lightheaded. Remember, MINUTES DO MATTER. If you experience any of these heart attack warning signs, call to get immediate medical attention! ?? Smoking can increase your chances of developing chronic health problems and can cause harmful effects to other family members in your house. If you smoke, you are strongly encouraged to quit. Please call [facility] Campaign Monitor Link at [phone] or [phone] ([phone]) or log in to [email or web address] for referrals to smoking cessation programs. ?? The National Suicide Prevention Hotline is available 19/11 if you or someone you know needs to find a reason to keep living. By calling 6-611-574-MiFi (1089) you'll be connected to a skilled, trained counselor at a crisis center in your area. INPATIENT DISCHARGE INSTRUCTIONS SIGNATURE PAGE ARYAN ANNE Location:[facility] Registration Date and Time:04/17/2022 09:24 EST Primary Care Physician: Lesia Bliss DO, ARYAN BURKS, have received the above patient education materials/instructions and have verbalized understanding. If ambulance or transport services are being used I further acknowledge being given a choice of service. ?? If you need to contact me, please call me at this number: . Patient/Copy Center Specialist Name: Patient/Copy Center Specialist Signature: Relationship to Patient: Witness Name/Signature: Date: * Sunitha France RN: PERFORM, SIGN, VERIFY Event Display: Patient Education Handout Authored Date: * Sunitha France RN: PERFORM Event Display: Patient Education Leaflets Authored Date: Surgery Medical Daystay Surgical Overnight Discharge Instructions ?? 295 Medical Daystay/Surgical Overnight Discharge Instructions ? Since your coordination and judgment may be altered by medication and/or anesthesia, a responsible adult must drive you home from the hospital. ? If you have received medication for pain or sedation while under our care, you should not drive, operate machinery, drink alcohol, or sign any legal documents for 24 hours.?? You should have someone with you at home tonight. ? Remain at home the day of discharge.?? You may be up and about unless otherwise instructed by your physician. ? You may resume your daily prescription medication schedule.?? Any depressant medication should be avoided for 24 hours unless otherwise instructed by your surgeon or anesthesiologist. ? Call your physician for a follow-up appointment.? If you experience unusual or severe pain not relied by your pain medication, excessive bleedingor drainage, persistent nausea and vomiting, excessive swelling or redness, foul odor from incisionsite or fever over 100.6F, you need to call your physician. ? A follow-up phone call by a nurse will be made the day after your procedure.?? If you have stayed with us over night, you will not be receiving a follow-up phone call. ? Nausea and vomiting are a common side effect of prescription pain medication.?? We recommend that pills are not taken on an empty stomach.?? While taking any prescription pain medication you should not drive or drink alcohol. ? Patient Care team information Care Team Personnel Name: Lesia Bliss DO Position: S Outreach Member Role: PCP Address: Address: [address] [place] [address]- [place] Care Team Related Persons Name: YG VALDEZ Address: [employer] Address: [address] [place] [address] [place] Name: FAVIO AHUMADA Address: home [address] [place] [address]
--- OUTSIDE RECORDS SUMMARY | 2023-10-30 10:46 | XMS_ITS | Continuity of Care Document ---
Demographics Address [address] [place] [address] Mobile Email Address Preferred Language Bengali Marital Status Single Mu-Ism Affiliation Unknown Affiliatio n Race White Ethnic Group Not or Lati no Author Organization [facility] Address [address] [facility], [address] d Floor, [address] [place] [address]- Care Team Providers Care Klystrom Tube Tester Name Role Phone Ruthy Lesia CARRANZA Primary Care Physician Encounter [facility] [place] Date(s): 05/01/23 - 08/21/23 [facility] [address] [facility] [address] Floor, [address] [place] [address]- Attending Physician: Jose Luis Carvalho MD Admitting Physician: Jose Luis Carvalho MD Allergies, Adverse [...] 12/16/21 8:43:00 EDT, Route to Pharmacy Electronically, [facility]/pharmacy #[id number], Partial fill upon patient request if the prescription is for a schedule II o... Start Date: 12/16/21 Status: Ordered LORazepam 0.5 mg oral tablet See Instructions, 2 tablet By Mouth2 hours before mri, 2 at mri as needed for anxiety, # 4 tablet, 0 Refills, Maintenance, 12/13/22 15:57:00 EDT, [facility]/pharmacy #[id number], 157.48, cm, 10/03/22 10:52:00 EDT, Height, 78.5, [...] 12/17/21 23:15:00 EDT, Route to Pharmacy Electronically, [facility]/pharmacy #[id number], Partial fill upon patient request if the [...] Outreach Member Role: PCP Address: Address: [address] [place] [address]- Care Team Related Persons Name: YG VALDEZ Address: [employer] Address: home [address] [place] [address] [place] Name: FAVIO AHUMADA Address: [address] [facility] [place] [address]
--- OUTSIDE RECORDS SUMMARY | 2023-10-30 10:46 | XMS_ITS | Continuity of Care Document ---
Author Organization [facility] ter Address [address] [place] [address]- Care Team Providers Care Library Cataloging Technician Name Role Phone Ruthy CARRANZALesia Primary Care Physician [place] [facility] Date(s): 01/31/22 - 04/06/[address] [address]- Attending Physician: Jose Luis Carvalho MD Admitting [...] 12/16/21 8:43:00 EDT, Route to Pharmacy Electronically, [facility]/pharmacy #[id number], Partial fill upon patient request if the [...] 23:15:00 EDT, [facility], [id number], Partial fill upon patient request if [...] 01/04/23 0:00:00 EDT, 01/04/22 17:14:00 EDT, Tablet, [facility]/pharmacy #[id number], Partial fill upon patient request... Start Date: 01/04/22 Stop Date: 01/04/23 Status: Ordered Social History Social History Type Response Smoking Status Never (less than 100 in lifetime) entered on: 12/17/21 Sex Patient Care team information Care Team Personnel Name: Lesia Bliss DO Position: S Outreach Member Role: PCP Address: Address: [address] [place] [address]- Care Team Related Persons Name: YG VALDEZ Address: [employer] Address: [address] [place] [address] [place] Name: FAVIO AHUMADA Address: [address] [place] [address]
--- OUTSIDE RECORDS SUMMARY | 2023-10-30 10:46 | XMS_ITS | Continuity of Care Document ---
Author Organization [facility] ter Address [address] [place] [address]- Care Team Providers Care Floral Specialist Name Role Phone Lesia Bliss DO Primary Care Physician Encounter [facility] [place] Date(s): 11/17/21 - 11/17/[address] [address]- Discharge Disposition: A-D/C Home Attending Physician: Tomy [...] to oldest [Reference Range]: 1 2 3 Weight 83.3 kg (11/17/21 3:09 PM) Oxygen Saturation [94-100 %] 97 % (11/17/21 5:01 PM) 97 % (11/17/21 4:46 PM) 97 % (11/17/21 4:31 PM) Blood Pressure [90-138/55-84 mm Hg] 101/52mm Hg (11/17/21 5:01 PM) 111/65mm Hg (11/17/21 4:46 PM) 104/52mm Hg (11/17/21 4:31 PM) Temperature [96.8-100.4 DegF] 98.3 DegF (11/17/21 3:09 PM) Blood pressure sites Arm, right (11/17/21 3:17 PM) Temperature Route Oral (11/17/21 3:09 PM) Dry Weight 83.3 kg (11/17/21 3:09 PM)
--- OUTSIDE RECORDS SUMMARY | 2023-10-30 10:46 | XMS_ITS | Continuity of Care Document ---
Author Organization [facility] Address [address] [place] [id number]- Care Team Providers Care Warehouse Handler Name Role Phone HillaryerikLesia hoffmann DO Primary Care Physician En[place] [facility] [place] Date(s): 09/21/21 - 10/21/21 [facility] [address] [place] [id number] Allergies, Adverse Reactions, Alerts No Known Allergies [...]
--- OUTSIDE RECORDS SUMMARY | 2023-10-30 10:46 | XMS_ITS | Continuity of Care Document ---
Author Organization [facility] ter Address [address] [place] [id number]- Care Team Providers Care Knockup Worker Name Role Phone DalialuisLesia hoffmann DO Primary Care Physician Encounter [facility] [place] Date(s): 11/21/21 - 11/21/[address] [phone]- Discharge Disposition: A-D/C Home Attending Physician: Tomy [...] Acute 11/25/21 23:57:00EDT, 11/18/21 23:57:00 EDT, Cream, [facility]/pharmacy #[id number], Partial fill upon patient request if the prescription is for a schedule II opioid drug., 1 appli... Start Date: 11/18/21 Stop Date: 11/25/21 Status: Ordered Pepcid 20 mg oral tablet 1 tablet = 20 mg, By Mouth, Daily at bedtime, # 30 tablet, 2 Refills, Maintenance, 11/18/21 23:58:00 EDT, Tablet, [facility]/pharmacy #[id number], Partial fill upon patient request [...] By Mouth, Once, PRN for Pain , Moderate, STAT, 11/21/21 14:18:00 EDT Start Date: 11/21/21 Stop Date: 11/21/21 Status: Completed Problem List Condition Effective Dates Status Health Status Inform ant Candidal vaginitis(Confirmed) Active Flank pain(Confirmed) Active Heartburn during (Confirmed) Active Vital Signs Most recent to oldest [Reference Range]: 1 2 3 Weight 83.4 kg (11/21/21 11:39 AM) Oxygen Saturation [94-100 %] 98 % (11/21/21 2:16 PM) 98 % (11/21/21 2:10 PM) 98 % (11/21/21 1:53 PM) Blood Pressure [90-138/55-84 mm Hg] 118/73mm Hg (11/21/21 2:10 PM) 133/78mm Hg (11/21/21 1:53 PM) 129/76mm Hg (11/21/21 1:30 PM) Respiratory Rate [16-30 br/min] 18 br/min (11/21/21 3:12 PM) 20 br/min (11/21/21 12:03 PM) Temperature [96.8-100.4 DegF] 98.0 DegF (11/21/21 11:39 AM) Mode of Delivery (Oxygen) Room air (11/21/21 12:03 PM) Blood pressure sites Arm, left (11/21/21 12:03 PM) Temperature Route Oral (11/21/21 11:39 AM) Weight Obtained Via Standing scale (11/21/21 11:39 AM)
--- OUTSIDE RECORDS SUMMARY | 2023-10-30 10:46 | XMS_ITS | Continuity of Care Document ---
Author Organization [facility] ter Address [address] [place] [id number]- Care Team Providers Care Commercial Front Load Operator Name Role Phone Lesia Bliss DO Primary Care Physician Encounter [facility] [place] Date(s): 07/11/21 - 07/11/[address] [id number] Discharge Disposition: A-D/C Home Attending Physician: Tomy López MD Admitting Physician: Tomy López MD Referring Physician: Tomy López MD Allergies, Adverse Reactions, Alerts No Known Allergies Medications dicyclomine 10 mg oral capsule 1 capsule = 10 mg, By Mouth, 2 times a day, # 60 capsule, 6 Refills, Maintenance, 05/20/19 11:15:00EST, Capsule, [id number], 158.5, cm, 05/20/19 10:43:00 EST, Height, 68, kg, 05/20/19 10:43:00 EST, Dry Weight Start Date: 05/20/19 Stop Date: 12/16/19 Status: Ordered 1 By Mouth, Daily, 0 Refills, Maintenance, 07/11/21 17:51:00 EDT, Partial fill upon patient request if the prescription is for a schedule II opioid drug. Start Date: 07/11/21 Status: Ordered Problem List Condition Effective Dates Status Health Status Inform ant Flank pain(Confirmed) Active Vital Signs Most recent to oldest [Reference Range]: 1 Weight 85.0 kg (07/11/21 5:36 PM) Oxygen Saturation [94-100 %] 100 % (07/11/21 5:36 PM) Pulse Rate [55-90 bpm] 90 bpm (07/11/21 5:36 PM) Blood Pressure [90-138/55-84 mm Hg] 124/ 76mm Hg (07/11/21 5:36 PM) Respiratory Rate [16-30 br/min] 18 br/mi n (07/11/21 5:36 PM) Temperature [96.8-100.4 DegF] 97.7 DegF (07/11/21 5:36 PM) Temperature Route Oral (07/11/21 5:36 PM) Dry Weight 85.0 kg (07/11/21 5:36 PM) Weight Obtained Via Standing scale (07/11/21 5:36 PM) Dry Weight Obtained Via Standing scale (07/11/21 5:36 PM)
--- NOTE | 2023-10-30 10:56 | ED_ITS ---
HPI - General Adult General Chief complaint: Back Pain/Injury Stated complaint: lower back pain Time Seen by Provider: 10/30/23 10:56 Source: patient Mode of arrival: ambulatory Limitations: no limitations History of Present Illness ED Provider: Kylie Aguilera PA-C HPI narrative: Patient is a 23 year old assigned female at with a history of a herniated disc in her back presenting to the emergency department today with mid to low back pain. Patient states that she has been having mid to low back pain that radiates into her abdomen. Patient states that the abdominal pain has resolved. Patient states that certain positions make her back feeling significantly better. Patient denies any dizziness, lightheadedness, abdominal pain, nausea, vomiting, fever, chills, blurry vision, double vision, loss of vision, chest pain, difficulty breathing, shortness of breath, night sweats, pain with urination, increased urinary frequency, increased urinary urgency, blood in her urine or stool, syncope or a near syncopal episode, recent trauma or falls, bowel incontinence, bladder incontinence, or any other complaints at this time. Onset (ago): day(s) Location: back Severity: mild Severity scale (1-10): 4 Quality: aching and dull Pain Consistency: constant Relieving factors: none Exacerbating factors: movement Associated symptoms: denies other symptoms Treatments prior to arrival: none Related Data Home Medications ?Medication ?Instructions ?Recorded ?Confirmed aspirin 81 mg tablet,delayed 162 mg PO DAILY 07/24/21 release chlorhexidine gluconate 0.12 % 15 ml PO BID 07/24/21 mouthwash pyridoxine (vitamin B6) 100 mg 100 mg PO DAILY 07/24/21 tablet Previous Rx's ?Medication ?Instructions ?Recorded ibuprofen 400 mg tablet 400 mg PO Q6H PRN pain #20 tabs 10/07/20 oxycodone-acetaminophen 5 mg-325 1 tab PO Q6H PRN pain #20 tabs 02/22/22 mg tablet (Percocet) tamsulosin 0.4 mg capsule (Flomax) 0.4 mg PO BEDTIME #7 caps 02/22/22 cephalexin 500 mg capsule 500 mg PO BID #7 caps 04/03/22 oxycodone-acetaminophen 5 mg-325 1 tab PO Q4H PRN pain (scale score 04/03/22 mg tablet (Percocet) 4-6) #14 tabs cefuroxime axetil 500 mg tablet 500 mg PO BID #10 tabs 09/30/22 phenazopyridine 200 mg tablet 200 mg PO TID PRN pain #9 tabs 09/30/22 (Pyridium) cyclobenzaprine 5 mg tablet 5 mg PO TID PRN back pain 7 days 10/30/23 #21 tabs prednisone 20 mg tablet 20 mg PO DAILY 7 days #7 tabs 10/30/23 Allergies Allergy/AdvReac Type Severity Reaction Status Date / Time diphenhydramine AdvReac Intermediate Agitated Verified 10/30/23 10:21 [From Benadryl] Review of Systems 2 Constitutional: Constitutional: Reports no additional constitutional complaints, Denies chills, Denies fever(s) and Denies night sweats Eyes: Eyes: Reports no additional eye complaints, Denies blurry vision, Denies change in vision, Denies diplopia, Denies eye discharge, Denies loss of vision and Denies eye pain ENT: Denies dizziness Cardiovascular: Cardiovascular: Reports no additional cardiovascular complaints, Denies chest pain, Denies lightheadedness, Denies Loss of Consciousness and Denies dyspnea Respiratory: Respiratory: Reports no additional respiratory complaints and Denies dyspnea Gastrointestinal: Gastrointestinal: Reports no additional gastrointestinal complaints, Denies abdominal pain, Denies melena, Denies hematochezia, Denies change in bowel habits and Denies change in stool character Genitourinary: Genitourinary: Denies hematuria, Denies urinary frequency, Denies dysuria, Denies urinary incontinence, Denies urinary hesitancy and Denies urinary urgency Musculoskeletal: Musculoskeletal: Reports no additional musculoskeletal complaints, Reports back pain, Denies numbness and Denies tingling Neurologic: Denies dizziness, Denies loss of vision, Denies numbness and Denies tingling Psychiatric: Psychiatric: Reports no additional psychiatric complaints Endocrine: Endocrine: Reports no additional endocrine complaints Hematologic/Lymphatic: Hematologic/Lymphatic: Reports no additional hematologic/lymphatic complaints Allergic/Immunologic: Allergic/Immunologic: Reports no additional allergic/immunologic complaints PMFSH Past Medical History Attestation statement: The following information was validated with the patient. Source: old records reviewed and nursing notes reviewed Medical History Renal calculi Patient denies significant medical history Surgical History No pertinent past surgical history Social History Social History Alcohol intake: never Advance Directives: No Advance Directives Information Provided: No Physical Exam ED Vital Signs: Vital Signs - 24 hr 10/30/23 10:20 10/30/23 13:06 Temperature 96.9 F 96.9 F Pulse Rate 73 73 Respiratory Rate 16 16 Blood Pressure 119/64 119/64 Pulse Oximetry 97 97 Oxygen Delivery Method Room Air Room Air BMI result Body Mass Index 38.4 Const General: cooperative, no acute distress, alert and awake Nutritional Appearance: well nourished Orientation/consciousness: patient oriented x3 Limitations: no limitations HENMT Head: Yes normal to inspection and Yes atraumatic Ears: hearing grossly normal bilaterally and external ears normal General nose exam: Normal external nose present, no nasal discharge noted and no epistaxis Face and sinus: Yes normal facial exam, No abrasion and No laceration Mouth: Normal oral and palatal mucosa present, no drooling and no muffled voice Eyes General: appearance normal, both eyes and all related structures Periorbital: periorbital findings normal Eyelids: Yes eyelids normal Conjunctivae: conjunctivae normal Pupils: Equal, round and reactive pupils present EOM: EOMs intact bilaterally Neck Neck: Yes normal visual inspection, Yes full ROM and Yes no lymphadenopathy Chest Chest palpation & inspection: normal inspection of the chest Resp Effort & Inspection: normal respiratory effort and able to speak in complete sentences GI Inspection: Yes normal to inspection Neuro General: patient oriented x3 and moves all extremities Cranial nerves: Yes Equal, round and reactive pupils present Cognition (Neuro): normal cognition Extrem General: Yes normal to inspection, Yes full ROM and Yes capillary refill normal Psych Appearance: grossly normal Mental Status: mental status grossly normal Affect: normal affect Attitude: cooperative Thought process: Normal thought process present Thought content: Normal thought content present Insight: Good insight present (Psych) Medications Administered Discontinued Medications Generic Name Dose Route Start Last Admin Trade Name Freq PRN Reason Stop Dose Admin Cyclobenzaprine HCl 5 mg 10/30/23 11:31 10/30/23 11:55 Cyclobenzaprine Hcl 5 Mg Tablet PO 10/30/23 11:32 5 mg ONCE ONE Administration Methylprednisolone Sodium Succinate 60 mg 10/30/23 11:31 10/30/23 11:56 Methylprednisolone Sod Succ 125 Mg/2 Ml Vial IM 10/30/23 11:32 60 mg ONCE ONE Administration Medical Decision Making Medical Decision Making [facility] Narrative: Patient is a 23 year old assigned female at with a history of bulging disc presenting to the emergency department today with low back pain. Patient's physical exam was unremarkable. Patient's blood work was unremarkable. Patient's urine showed no acute process. I explained my physical exam findings as well as all test results to the patient. I answered all questions asked by the patient. I stressed the importance of the patient taking her medication as directed (either prescribed or as the over the counter packaging recommends). I stressed the importance of the patient following up with her primary care provider and a natural resource specialist. I stressed the importance of the patient returning to the emergency department immediately if her symptoms were to worsen or if she were to develop any dizziness, shortness of breath, difficulty breathing, chest pain, blurry vision, loss of vision, nausea, vomiting, abdominal pain, fever, chills, back pain, or any other complaints. Patient verbalized agreement and understanding with this treatment plan and discharge. Differential Diagnosis Differential Diagnoses: The differential diagnosis associated with the presentation includes Bulging disc Low back pain Sciatica Lumbar radiculopathy Admission/Observation Consideration of admission/observation: Escalation of care including admission/observation considered Patient would have been admitted to the hospital had her work up had any findings where hospital admission was appropriate and her clinical presentation warranted hospital admission. Lab Data [facility] Lab Attestation statement: I reviewed the patient's lab results. My interpretation of these results are in the [facility] Rationale portion of this note. 10/30/23 10:37 10/30/23 10:37 Labs: Lab Results 10/30/23 10/30/23 Range/Units 10:37 11:17 WBC 5.7 (4.8-10.8) X10*3/uL RBC 5.45 (4.20-5.50) X10*6/uL Hgb 14.6 (12.0-16.0) g/dl Hct 43.8 (37.0-47.0) % MCV 80.4 (80.0-98.0) fL MCH 26.8 L (27.0-33.0) pg MCHC 33.3 (31.0-35.0) g/dl RDW 12.6 (11.0-16.0) % Plt Count 332 (160-400) X10*3/uL MPV 9.2 L (9.4-12.3) fL Immature Gran % (Auto) 0.2 (0.0-0.4) % Neut % (Auto) 40.3 L (45-73) % Lymph % (Auto) 44.0 H (20-40) % [place] % (Auto) 8.0 (2-11) % Eos % (Auto) 6.8 H (0-4) % Baso % (Auto) 0.7 (0-2) % Lymph # (Auto) 2.5 (1.2-4.9) X10*3/uL [place] # (Auto) 0.5 (0.1-1.2) X10*3/uL Eos # (Auto) 0.4 (0.0-0.4) X10*3/uL Baso # (Auto) 0.0 (0.0-0.2) X10*3/uL Abs Immat Gran (auto) 0.01 (0.00-0.03) X10*3/uL Absolute Neuts (auto) 2.3 (2.0-8.3) x10*3/uL Absolute Nucleated RBC 0.000 (0.0-0.012) X10*3/uL Nucleated RBC % (auto) 0.0 (0.0-0.2) /100WBC Sodium 139 (135-145) mmol/L Potassium 4.6 (3.3-5.1) mmol/L Chloride 106 (96-108) mmol/L Carbon Dioxide 24 (22-29) mmol/L Anion Gap 14 (12-20) BUN 10 (9-16) mg/dL Creatinine 0.72 (0.5-1.4) mg/dL Estim Creat Clear Calc 132.9 Estimated GFR > 60 Random Glucose 103 (60-115) mg/dL Calcium 10.1 (8.4-10.2) mg/dL Total Bilirubin 0.5 (0.0-1.0) mg/dL AST 34 H (5-31) U/L ALT 47 H (0-31) U/L Alkaline Phosphatase 76 (39-117) U/L Total Protein 7.5 (6.5-8.0) g/dL Albumin 4.5 (3.5-5.0) g/dL Beta HCG, Quant < 2 mIU/mL Urine Color Yellow Urine Appearance Hazy Urine pH 5.5 (5.0-9.0) Ur Specific Archbold >= 1.030 H (1.005-1.025) Urine Protein Trace (Neg-Trace) mg/dL Urine Glucose (UA) Negative (Negative) mg/dL Urine Ketones Negative (Negative) mg/dL Urine Blood Large (3+) H (Negative) Urine Nitrite Negative (Negative) Ur Leukocyte Esterase Negative (Negative) Urine RBC 11-20 H (0-2) /HPF Urine WBC 0-5 (0-5) /HPF Ur Squamous Epith Cells 6-10 (0-2) /HPF Urine Bacteria 2+ (None Seen) Hyaline Casts 0-2 (0-2) /LPF Urine Test NEGATIVE (NEGATIVE) Tests considered The following testing was considered but not selected: I considered obtaining a lumbar spine x-ray however, the patient's current clinical presentation did not warrant this. I discussed this with the patient who verbalized agreement and understanding. Prescription Management I considered prescription management with: Pain Medication (patient prescribed pain medication.) Discharge Plan Discharge Clinical Impression: Back pain Patient Disposition: Home, Self-Care Instructions: Back Pain (ED) Additional Instructions: Follow up with your primary care provider and a natural resource specialist. Return to the emergency department immediately if your symptoms worsen or if you develop any dizziness, shortness of breath, difficulty breathing, chest pain, blurry vision, loss of vision, nausea, vomiting, abdominal pain, fever, chills, back pain, or any other complaints. Prescriptions: New cyclobenzaprine 5 mg tablet 5 mg PO TID PRN (Reason: back pain) 7 Days Qty: 21 0RF prednisone 20 mg tablet 20 mg PO DAILY 7 Days Qty: 7 0RF No Action ibuprofen 400 mg tablet 400 mg PO Q6H PRN (Reason: pain) Qty: 20 0RF oxycodone-acetaminophen [Percocet] 5-325 mg tablet 1 tab PO Q6H PRN (Reason: pain) Qty: 20 0RF Rx Instructions: Partial Fill upon patient request. tamsulosin [Flomax] 0.4 mg capsule 0.4 mg PO BEDTIME Qty: 7 0RF oxycodone-acetaminophen [Percocet] 5-325 mg tablet 1 tab PO Q4H PRN (Reason: pain (scale score 4-6)) Qty: 14 0RF Rx Instructions: Partial Fill upon patient request. cephalexin 500 mg capsule 500 mg PO BID Qty: 7 0RF cefuroxime axetil 500 mg tablet 500 mg PO BID Qty: 10 0RF phenazopyridine [Pyridium] 200 mg tablet 200 mg PO TID PRN (Reason: pain) Qty: 9 0RF aspirin 81 mg tablet,delayed release (DR/EC) 162 mg PO DAILY chlorhexidine gluconate 0.12 % mouthwash 15 ml PO BID pyridoxine (vitamin B6) 100 mg tablet 100 mg PO DAILY Referrals: [facility] [place] [facility] [Provider Group] (Call to establish and follow up with a natural resource specialist. ) [place] [Primary Care Provider] - Stand Alone Forms: Work/School Release Interventions: ED Discharge Assessment Last Done: 10/30/23 13:06 Discharge Date/Time: 10/30/23 13:07 Print Language: Pashto
[2023-10-30 11:05] LABS: Alanine Aminotransferase 47 U/L (0-31); Albumin Level 4.5 g/dL (3.5-5.0); Alkaline Phosphatase 76 U/L (39-117); Anion Gap 14 (12-20); Aspartate Amino Transferase 34 U/L (5-31); Bilirubin Total 0.5 mg/dL (0.0-1.0); Blood Urea Nitrogen 10 mg/dL (9-16); Calcium 10.1 mg/dL (8.4-10.2); Carbon Dioxide 24 mmol/L (22-29); Chloride 106 mmol/L (96-108); Creatinine Clr Calc Pharmacy 132.9; Estimated Glomerular Filt Rate > 60; Glucose Random 103 mg/dL (60-115); HCG Quantitative < 2 mIU/mL; Potassium 4.6 mmol/L (3.3-5.1); Sodium 139 mmol/L (135-145); Total Protein 7.5 g/dL (6.5-8.0)
[2023-10-30 11:27] LABS: Appearance Urine Hazy; Color Urine Yellow; Glucose Urine UA Negative (Negative); Leukocyte Esterase Urine Negative (Negative); Nitrite Urine Negative (Negative); PH 5.5 (5.0-9.0); Specific Gravity - Urine >= 1.030 (1.005-1.025); UMIC TRIGGER UACC YES; Urine Blood Large (3+) (Negative); Urine Ketones Negative (Negative); Urine Protein Trace mg/dL (Neg-Trace)
[2023-10-30 11:28] LABS: UPreg QC Valid YES; Urine Pregnancy NEGATIVE (NEGATIVE)
[2023-10-30] MEDS: Cyclobenzaprine HCl 5 MG TABLET PO (11:55)
[2023-10-30] MEDS: methylPREDNISolone Sod Succ 125 MG/2 ML VIAL 60 MG IM (11:56)
[2023-10-30 12:00] LABS: Bacteria Urine 2+ (None Seen); Hyaline Casts Urine 0-2 /LPF (0-2); WBC Urine 0-5 /HPF (0-5)
[2023-10-30 13:06] VITALS: BP 119/64; PULSE 73; RESP 16; TEMP 36.1; O2SAT 97
== END 2023-10-30 13:07 | disposition home or self-care (01) ==
PROVIDERS: Physician Assistant Medical; Emergency Provider Emergency Medicine
DX: M54.50 Low back pain, unspecified (principal)
CPT/HCPCS: 36415; 80053; 81001; 81025; 84702; 85025; 96372; 99283; 99284; J2919

== ENCOUNTER 2024-02-06 11:55 | Outpatient (REF) | payer MEDICAID, SELFPAY ==
[2024-02-06 13:54] LABS: Bacterial Vaginosis PCR POSITIVE (Negative); Candida Group PCR DETECTED (Not Detect); Candida glab krusei PCR NOT DETECTED (Not Detect); Trichomonas vaginalis PCR NOT DETECTED (Not Detect)
== END 2024-02-06 11:56 | disposition home or self-care (01) ==
LOC: HO.LNP 11:55
PROVIDERS: Visit Provider Nurse Practitioner Family
DX: N89.8 Other specified noninflammatory disorders of vagina (principal)
CPT/HCPCS: 0352U

== ENCOUNTER 2024-04-28 10:18 | Emergency (ER) | payer MEDICAID, SELFPAY ==
[2024-04-28 10:36] VITALS: BP 141/86; PULSE 89; RESP 16; TEMP 36.4; O2SAT 97; BMI 38.8
--- NOTE | 2024-04-28 11:11 | MHC.EDTECH ---
Patient stated she passed a stone while urinating in the bathroom. RN aware. Patient resting in room at this time. Call adamson placed within reach.
[2024-04-28 11:19] LABS: MANUAL DIFF FLAG NO
[2024-04-28 11:22] LABS: Basophils Percent Auto 0.7 % (0-2); Eosinophils Absolute Auto 0.3 X10*3/uL (0.0-0.4); Eosinophils Percent Auto 5.3 % (0-4); Hemoglobin 13.8 g/dl (12.0-16.0); Imm Gran Abs Auto 0.02 X10*3/uL (0.00-0.03); Imm Gran Pct Auto 0.3 % (0.0-0.4); Lymphocytes Absolute Auto 1.9 X10*3/uL (1.2-4.9); Lymphocytes Percent Auto 31.5 % (20-40); Mean Corpuscular HGB Conc 34.5 g/dl (31.0-35.0); Mean Corpuscular Volume 78.1 fL (80.0-98.0); Mean Platelet Volume 9.1 fL (9.4-12.3); Monocytes Absolute Auto 0.4 X10*3/uL (0.1-1.2); Monocytes Percent Auto 6.7 % (2-11); Neutrophils Absolute Auto 3.4 x10*3/uL (2.0-8.3); Neutrophils Percent Auto 55.5 % (45-73); Platelet Count 305 X10*3/uL (160-400); Red Blood Count 5.12 X10*6/uL (4.20-5.50); Red Cell Distribution Width 12.1 % (11.0-16.0); White Blood Count 6.1 X10*3/uL (4.8-10.8)
[2024-04-28 11:23] LABS: Appearance Urine Cloudy; Color Urine Yellow; Glucose Urine UA Negative (Negative); Leukocyte Esterase Urine Trace (Negative); Nitrite Urine Negative (Negative); PH 5.5 (5.0-9.0); UMIC TRIGGER UACC YES; Urine Blood Large (3+) (Negative); Urine Ketones Negative (Negative); Urine Protein 30 (1+) mg/dL (Neg-Trace)
[2024-04-28 11:25] LABS: UPreg QC Valid YES; Urine Pregnancy NEGATIVE (NEGATIVE)
[2024-04-28 11:26] LABS: Bacteria Urine None Seen (None Seen); RBC Urine >20 /HPF (0-2); WBC Urine 0-5 /HPF (0-5)
--- NOTE | 2024-04-28 11:37 | ED_ITS ---
HPI - Female Genitourinary General Chief complaint: Urogenital-Female Stated complaint: Abd pain Time Seen by Provider: 04/28/24 11:09 Source: patient Mode of arrival: ambulatory Limitations: no limitations History of Present Illness ED Provider: MELANI HEREDIA PA-C HPI Narrative: 23 year old female with pmhx significant for nephrolithiasis presents to the ED today for evaluation abdominal pain, flank pain and dysuria x2 weeks. She states her symptoms initially began with flank pain two weeks ago which has been mild since onset. She reports contacting her urologist who placed an order for outpatient CT scan (which was scheduled for today) to assess for renal stones. She reporst waking up around 0700 this morning with lower abdominal cramping. She describes this as feeling like her bladder is spasming. She then began to feel nauseaous. No vomiting. On arrival to the ED, she states that as she was giving a urine sample on arrival to the ED, she felt something pass . She noticed a small stone in the urine cup. She now endorses urethral irritation/ dysuria. States her abdominal pain improved after this, now only a 3/10. Denies nausea or flank pain at present. Related Data Home Medications ?Medication ?Instructions ?Recorded ?Confirmed aspirin 81 mg tablet,delayed 162 mg PO DAILY 07/24/21 release chlorhexidine gluconate 0.12 % 15 ml PO BID 07/24/21 mouthwash pyridoxine (vitamin B6) 100 mg 100 mg PO DAILY 07/24/21 tablet Previous Rx's ?Medication ?Instructions ?Recorded ibuprofen 400 mg tablet 400 mg PO Q6H PRN pain #20 tabs 10/07/20 oxycodone-acetaminophen 5 mg-325 1 tab PO Q6H PRN pain #20 tabs 02/22/22 mg tablet (Percocet) tamsulosin 0.4 mg capsule (Flomax) 0.4 mg PO BEDTIME #7 caps 02/22/22 cephalexin 500 mg capsule 500 mg PO BID #7 caps 04/03/22 oxycodone-acetaminophen 5 mg-325 1 tab PO Q4H PRN pain (scale score 04/03/22 mg tablet (Percocet) 4-6) #14 tabs cefuroxime axetil 500 mg tablet 500 mg PO BID #10 tabs 09/30/22 phenazopyridine 200 mg tablet 200 mg PO TID PRN pain #9 tabs 09/30/22 (Pyridium) cyclobenzaprine 5 mg tablet 5 mg PO TID PRN back pain 7 days 10/30/23 #21 tabs prednisone 20 mg tablet 20 mg PO DAILY 7 days #7 tabs 10/30/23 Allergies Allergy/AdvReac Type Severity Reaction Status Date / Time diphenhydramine AdvReac Intermediate Agitated Verified 04/28/24 10:37 [From Jerome] Review of Systems 2 Review of Systems: Constitutional: No fever, chills, fatigue, night sweats, weight changes ENT/Mouth: No ear pain, hearing loss, nasal congestion, sinus pain, rhinorrhea, sore throat Eyes: No eye pain, swelling, redness, vision changes, discharge Cardio: No chest pain, palpitations, ANAND, orthopnea, peripheral edema Pulm: No SOB, cough, sputum, wheezing, dyspnea, hemoptysis GI: No nausea, vomiting, hematemesis, diarrhea, constipation, hematochezia, melena, +abd cramping : No irregular bleeding, dysuria, frequency, urgency, hesitancy, hematuria, flank pain, urinary flow changes, urinary incontinence or retention, +dysuria MSK: No back pain, neck pain, joint pain, myalgias Skin: No lesions, rashes Neuro: No weakness, numbness, paresthesias, LOC, dizziness, headache Psych: No anxiety/panic, depression, SI/HI, AH/VH All other systems reviewed and are negative. [facility] Past Medical History Attestation statement: The following information was validated with the patient. Source: old records reviewed and nursing notes reviewed Medical History Renal calculi Patient denies significant medical history Surgical History No pertinent past surgical history Social History Social History Alcohol intake: never Advance Directives: No Advance Directives Information Provided: Yes Physical Exam 2 Vital Signs: Vital Signs: Last Vital Signs Temp 97.5 F 04/28/24 13:27 Pulse 86 04/28/24 13:27 Resp 16 04/28/24 13:27 BP 142/69 H 04/28/24 13:27 Pulse Ox 97 04/28/24 13:27 O2 Del Method Room Air 04/28/24 13:27 BMI result Body Mass Index 38.8 Course Course Course Narrative: Urine with blood/ RBCs indicated of stone passsage. urine preg negative. CBC without leukocytosis or left shift. no anemia. h&h stable. bmp without electrolyte abnormality requiring intervention. no diogo. > stone visible in urine cup. patient currently asymptomatic. discussed possible CT A/P however patient declines at this time which i feel is reasonable. she will be following up with her urologist outpatient. Patient has remained stable throughout ED visit today. Discussed worrisome signs and symptoms and when to return to the ED. All questions answered at this time. Patient is agreeable with disposition and stable for discharge. Medical Decision Making Medical Decision Making [facility] Narrative: 23 year old female with pmhx significant for nephrolithiasis presents to the ED today for evaluation abdominal pain, flank pain and dysuria x2 weeks. Hypertensive to 141/96, vitals otherwise WNL. Afebrile. She is nontoxic- appearing and in no acute distress. Sitting comfortably on the exam bed. Exam benign. Her abdomen is soft, nondistended, nontender to palpation without rebound tenderness or guarding. She does not have CVAT. Differential diagnosis includes renal colic, nephrolithiasis, pyelonephritis, hydronephrosis, uti, IUP Plan for labs, UA, +/- CT a/p Differential Diagnosis Differential Diagnoses: The differential diagnosis associated with the presentation includes as above. Admission/Observation Not indicated. Lab Data [facility] Lab Attestation statement: I reviewed the patient's lab results. as above. 04/28/24 11:02 04/28/24 11:02 Labs: Lab Results 04/28/24 04/28/24 Range/Units 11:02 11:10 WBC 6.1 (4.8-10.8) X10*3/uL RBC 5.12 (4.20-5.50) X10*6/uL Hgb 13.8 (12.0-16.0) g/dl Hct 40.0 (37.0-47.0) % MCV 78.1 L (80.0-98.0) fL MCH 27.0 (27.0-33.0) pg MCHC 34.5 (31.0-35.0) g/dl RDW 12.1 (11.0-16.0) % Plt Count 305 (160-400) X10*3/uL MPV 9.1 L (9.4-12.3) fL Immature Gran % (Auto) 0.3 (0.0-0.4) % Neut % (Auto) 55.5 (45-73) % Lymph % (Auto) 31.5 (20-40) % Reagan % (Auto) 6.7 (2-11) % Eos % (Auto) 5.3 H (0-4) % Baso % (Auto) 0.7 (0-2) % Lymph # (Auto) 1.9 (1.2-4.9) X10*3/uL Reagan # (Auto) 0.4 (0.1-1.2) X10*3/uL Eos # (Auto) 0.3 (0.0-0.4) X10*3/uL Baso # (Auto) 0.0 (0.0-0.2) X10*3/uL Abs Immat Gran (auto) 0.02 (0.00-0.03) X10*3/uL Absolute Neuts (auto) 3.4 (2.0-8.3) x10*3/uL Absolute Nucleated RBC 0.000 (0.0-0.012) X10*3/uL Nucleated RBC % (auto) 0.0 (0.0-0.2) /100WBC Sodium 136 (135-145) mmol/L Potassium 4.2 (3.3-5.1) mmol/L Chloride 109 H (96-108) mmol/L Carbon Dioxide 20 L (22-29) mmol/L Anion Gap 11 L (12-20) BUN 8 L (9-16) mg/dL Creatinine 0.63 (0.5-1.4) mg/dL Estim Creat Clear Calc 152.7 Estimated GFR > 60 Random Glucose 107 (60-115) mg/dL Calcium 9.2 D (8.4-10.2) mg/dL Urine Color Yellow Urine Appearance Cloudy Urine pH 5.5 (5.0-9.0) Ur Specific [place] 1.020 (1.005-1.025) Urine Protein 30 (1+) H (Neg-Trace) mg/dL Urine Glucose (UA) Negative (Negative) mg/dL Urine Ketones Negative (Negative) mg/dL Urine Blood Large (3+) H (Negative) Urine Nitrite Negative (Negative) Ur Leukocyte Esterase Trace H (Negative) Urine RBC >20 H (0-2) /HPF Urine WBC 0-5 (0-5) /HPF Ur Squamous Epith Cells 3-5 (0-2) /HPF Urine Bacteria None Seen (None Seen) Hyaline Casts 3-5 (0-2) /LPF Urine Test NEGATIVE (NEGATIVE) External Record Review External record reviewed: Inpatient record Prescription Management I considered prescription management with: Pain Medication Chronic Conditions Patient?s care impacted by: Other (renal stones) Social Determinants Patient?s care significantly limited by Social Determinants of Health including: Other Social Determinant of Health Critical Care Time Critical Care Time Critical Care Time: No Discharge Plan Discharge Clinical Impression: Renal calculi Patient Disposition: Home, Self-Care Instructions: Renal Colic (ED), Low Oxalate Diet (ED) Additional Instructions: Your blood work today is reassuring. Your urine is negative for infection. Your urine did show blood which correlates with recent stone passage identified in your urine. You are opting out of CT scan today. Please follow up with your urologist as planned. Return with new or worsening symptoms. In the case of an emergency call 911. Prescriptions: No Action ibuprofen 400 mg tablet 400 mg PO Q6H PRN (Reason: pain) Qty: 20 0RF oxycodone-acetaminophen [Percocet] 5-325 mg tablet 1 tab PO Q6H PRN (Reason: pain) Qty: 20 0RF Rx Instructions: Partial Fill upon patient request. tamsulosin [Flomax] 0.4 mg capsule 0.4 mg PO BEDTIME Qty: 7 0RF oxycodone-acetaminophen [Percocet] 5-325 mg tablet 1 tab PO Q4H PRN (Reason: pain (scale score 4-6)) Qty: 14 0RF Rx Instructions: Partial Fill upon patient request. cephalexin 500 mg capsule 500 mg PO BID Qty: 7 0RF cyclobenzaprine 5 mg tablet 5 mg PO TID PRN (Reason: back pain) 7 Days Qty: 21 0RF prednisone 20 mg tablet 20 mg PO DAILY 7 Days Qty: 7 0RF cefuroxime axetil 500 mg tablet 500 mg PO BID Qty: 10 0RF phenazopyridine [Pyridium] 200 mg tablet 200 mg PO TID PRN (Reason: pain) Qty: 9 0RF aspirin 81 mg tablet,delayed release (DR/EC) 162 mg PO DAILY chlorhexidine gluconate 0.12 % mouthwash 15 ml PO BID pyridoxine (vitamin B6) 100 mg tablet 100 mg PO DAILY Referrals: [facility] [Provider Group] Interventions: ED Discharge Assessment Last Done: 04/28/24 13:27 Discharge Date/Time: 04/28/24 13:29 Print Language: [place]
[2024-04-28 11:40] LABS: Anion Gap 11 (12-20); Blood Urea Nitrogen 8 mg/dL (9-16); Calcium 9.2 mg/dL (8.4-10.2); Carbon Dioxide 20 mmol/L (22-29); Chloride 109 mmol/L (96-108); Creatinine Clr Calc Pharmacy 152.7; Estimated Glomerular Filt Rate > 60; Glucose Random 107 mg/dL (60-115); Potassium 4.2 mmol/L (3.3-5.1); Sodium 136 mmol/L (135-145)
--- NOTE | 2024-04-28 13:11 | PC.NURSE ---
pt states she past the stone and feels better, pt wanting to discharge to home and do an outpt ct scan like she was scheduled for, provider was notified.
[2024-04-28 13:27] VITALS: BP 142/69; PULSE 86; RESP 16; TEMP 36.4; O2SAT 97
== END 2024-04-28 13:29 | disposition home or self-care (01) ==
PROVIDERS: Emergency Provider Emergency Medicine
DX: N20.0 Calculus of kidney (principal); R30.0 Dysuria; Z87.442 Personal history of urinary calculi; Z79.899 Other long term (current) drug therapy
CPT/HCPCS: 36415; 80048; 81001; 81025; 85025; 99282; 99283